=== PATIENT | female | born 1990 | race Caucasian/White ===

== ENCOUNTER 2023-11-28 20:33 | Outpatient (REF) | payer OTHER, SELFPAY | END 2023-11-28 20:34 | disposition home or self-care (01) | LOC: LAB 20:33 | PROVIDERS: PCP Family Medicine; Visit Provider Physician Assistant | DX: Z01.419 Encounter for gynecological examination (general) (routine) without abnormal findings (principal) | CPT/HCPCS: 87624; G0145 ==

== ENCOUNTER 2024-12-08 18:57 | Outpatient (REF) | payer OTHER, SELFPAY ==
--- OUTSIDE RECORDS SUMMARY | 2024-12-08 19:00 | XMS_ITS | CCD ---
Author Organization [facility] Care Team Providers Care Associate Director Regulatory Affairs Name Role Phone CHARLEE GODOY Primary Care Physician REQUEST, DR GAFFNEY LISTED Primary Care Unavaila ble KALA, DR GALICIA Admitting Unavailable KARASIK, DR BENNETT Consulting Unavailable KALA, DR GALICIA Attending Unavailable KALA, DR GALICIA Consulting Unavailable AGUBOSIM, RAJAN Consulting Unavailable KALA, DR GALICIA Procedure Practitioner Unavailab le NILL, DR MCFARLAND Admitting Unavailable NILL, DR MCFARLAND Consulting Unavailable GODOY, DR CHARLEE Fishman Primary Care Unavailable NILL, DR MCFARLAND Attending Unavailable KALA, DR GALICIA Admitting Unavailable REQUEST, DR YEIMY LISTED Primary Care Unavaila ble WEST, DR SHELDON Mccall Consulting Unavailable KALA, DR GALICIA Attending Unavailable KALA, DR GALICIA Consulting Unavailable KALA, DR GALICIA Admitting Unavailable KALA, DR GALICIA Consulting Unavailable REQUEST, DR GAFFNEY LISTED Primary Care Unavaila ble KALA, DR GALICIA Attending Unavailable KALA, DR GALICIA Admitting Unavailable REQUEST, DR GAFFNEY LISTED Primary Care Unavaila ble KALA, DR GALICIA Consulting Unavailable KALA, DR GALICIA Attending Unavailable KALA, DR GALICIA Admitting Unavailable REQUEST, DR GAFFNEY LISTED Primary Care Unavaila ble KALA, DR GALICIA Consulting Unavailable KALA, DR GALICIA Attending Unavailable KALA, DR GALICIA Admitting Unavailable KALA, DR GALICIA Consulting Unavailable KALA, DR GALICIA Attending Unavailable REQUEST, NONE LISTED Primary Care Unavaila ble ZIEBER, DR EFRAIN Martínez Consulting Unavailable KALA, DR GALICIA Consulting Unavailable REQUEST, DR GAFFNEY LISTED Primary Care Unavaila ble KALA, DR GALICIA Attending Unavailable KALA, DR GALICIA Admitting Unavailable KALA, DR GALICIA Consulting Unavailable REQUEST, DR NONE LISTED Primary Care Unavaila ble KALA, DR GALICIA Attending Unavailable KALA, DR GALICIA Admitting Unavailable KALA, DR GALICIA Consulting Unavailable REQUEST, NONE LISTED Primary Care Unavailcarmen ARMENDARIZ, DR GAILCIA Admitting Unavailable KALA, DR GALICIA Attending Unavailable GODOY PROVIDER, CHARLEE Referring Unavailab le NILL, Bartolo Martínez Attending Unavailable NILL, Bartolo Martínez Attending Unavailable NILL, Bartolo Martínez Attending Unavailable NILL, Bartolo Martínez Attending Unavailable GODOY PROVIDER, CHARLEE Referring Unavailab le NILL, Bartolo Martínez Attending Unavailable Godoy, Charlee Unavailable ARI NESBITT Attending Unavailable ARI NESBITT Attending Unavailable Unavailable Primary Care Provider Unavailabl e Allergies Allergy Classification Reported Allergen(s) Allergy Type Date of Onset Reaction(s) Facility (1 source) No Known Medication Allergies; Translations: [No Known Medication Allergies] Propensity to adverse reactions (disorder) [facility] Repository (1 source) patient allergy list reviewed by nurse or physicia Propensity to adverse reactions Comment:[employer] Other (1 source) Allergies Reconciled Propensity to adverse reactions Unknown [employer] [facility] [employer] Other Medications Current Medications Medication Drug Class(es) Dates Sig (Normalized) Sig (Original) amoxicillin 875 mg / clavulanate 125 mg oral tablet (1 source) Penicillin-class Antibacterial Start: 07-16-2023 take 1 tablet by mouth every twelve hours Amoxicillin-Pot Clavulanate 875-125 MG 1 tablet Orally every 12 hrs for 10 day(s) Jun, Active azithromycin 250 mg oral tablet (1 source) Macrolide Antimicrobial Start: 07-23-2023 Azithromycin 250 MG as directed Orally 2 tabs po today, then 1 tab daily x 4 more days for 5 Jul, Active benzonatate 100 mg oral capsule (1 source) Non-narcotic Antitussive Start: 07-16-2023 take 1 capsule by mouth three times daily as needed Tessalon Perles 100 MG 1 capsule as needed Orally Three times a day for 7 days Jun, Active cephalexin 250 mg oral capsule (1 source) Cephalosporin Antibacterial Start: 05-15-2022 End: 05-20-2022 take 1 capsule by mouth three times daily Keflex 250 mg Cap 250 mg = 1 cap(s), Oral, TID, X 5 day(s), # 15 cap(s), Refills(s) 0, Pharmacy: [facility]/pharmacy #[id number], 175, cm, 05/15/22 15:04:00 EDT, Height/Length Dosing, 81, kg, 05/15/22 15:04:00 EDT, Weight Dosing Start Date: 05/15/22 Stop Date: 05/20/22 Status: Ordered ethinyl estradiol 0.035 mg / norgestimate 0.25 mg oral tablet (2 sources) Progestin, Estrogen Start: 05-05-2024 take 1 tablet by mouth once daily, then take 1 tablet by mouth once daily Sprintec 28 0.25-35 MG-MCG tablet Indications: control counseling Take 1 tablet by mouth Daily Take 1 tablet by mouth daily 84 tablet 3 05/05/2024 Active Start: 11-23-2023 take 1 tablet by aliyah th once daily Norgestimate-Ethinyl Estradiol (Marian) 0.25-35 mg-mcg tablet Active 1 TAB PO Daily November 23, 2023 12:00am methylPREDNISolone 4 mg oral tablet (1 source) Corticosteroid Start: 07-16-2023 methylPREDNISolone 4 MG as directed Orally daily dose take half with breakfast half with dinner for Jun, Active norethindrone 0.35 mg oral tablet (3 sources) Start: 04-03-2022 take 1 tablet by mouth once daily norethindrone 0.35 mg oral tablet 0.35 mg = 1 tab(s), Oral, Daily, Refills(s) 0 Start Date: 04/20/22 Status: Ordered (1 source) Start: 04-10-2022 ( Oral 1 daily ) Active -Hx Entry Oral daily for 0 *Pick strength-form from [employer] for eRX* Mar, Not-Taking/PRN Completed/Discontinued Medications Medication Drug Class(es) Dates Sig (Normalized) Sig (Original) aspirin 81 mg oral tablet (1 source) Platelet Aggregation Inhibitor, Nonsteroidal Anti-inflammatory Drug Start: 12-05-2021 take 1 tablet by mouth once daily as needed Aspir-Low 81MG Aspir-Low 81MG, 1 (one) Tablet daily # 60, 12/05/2021, Ref. x2. Active Oral daily for 60 *Pick strength-form from [employer] for eRX* November, Not-Taking/PRN fluticasone propionate 0.05 mg/actuat metered dose nasal spray (1 source) Corticosteroid Start: 04-10-2019 take 1 spray(s) nasal route once daily as needed Flonase Allergy Relief 50 MCG/ACT 1 spray in each nostril Nasally Once a day for 30 day(s) Mar, Not-Taking/PRN Problems Active Problems Problem Classification Problem Date Documented Date Episodic/Chronic Chronic obstructive pulmonary disease and bronchiectasis (1 source) Bronchitis, not specified as acute or chronic Episodic Immunizations and screening for infectious disease (5 sources) Encounter for screening for human papillomavirus (HPV); Translations: [Encounter for screening for infections with a predominantly sexual mode of transmission] Onset: 07-10-2021 Resolved: 07-10-2021 Episodic Menstrual disorders (6 sources) Irregular menstruation, unspecified; Translations: [Secondary amenorrhea] Onset: 07-10-2021 Resolved: 12-28-2019 Chronic Other and unspecified benign neoplasm (2 sources) Lipoma of back 04-27-2022 Episodic Other and unspecified benign neoplasm (4 sources) Benign lipomatous neoplasm of skin and subcutaneous tissue of trunk; Translations: [SUSHMA LIPOMAT NEOPLSM SKIN SUBQ TRUNK] Onset: 06-06-2022 Episodic Other and unspecified benign neoplasm (1 source) Lipoma of skin and subcutaneous tissue of trunk; Translations: [Benign lipomatous neoplasm of skin and subcutaneous tissue of trunk] Episodic Other complications of (1 source) Disease of the digestive system complicating , childbirth and/or the puerperium; Translations: [Diseases of the digestive system complicating , unspecified trimester] Episodic Other complications of (1 source) Maternal care for excessive growth, unspecified trimester, not applicable or unspecified; Translations: [Maternal care for excessive growth, unspecified trimester, not applicable or unspecified] Episodic Other complications of (1 source) Varicose veins of vulva AND/OR perineum complicating AND/OR puerperium; Translations: [Genital varices in , unspecified trimester] Episodic Other diseases of veins and lymphatics (3 sources) Vulval varices; 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] 04-20-2022 Episodic Other female genital disorders (1 source) Noninflammatory disorder of the vagina; Translations: [Other specified noninflammatory disorders of vagina] Episodic Other female genital disorders (1 source) Cyst of vulva; Translations: [Vulvar cyst] Episodic Other nutritional; endocrine; and metabolic disorders (2 sources) Overweight in adulthood with body mass index of 25 or more but less than 30 04-27-2022 Episodic Other nutritional; endocrine; and metabolic disorders (1 source) Body mass index 25-29 - overweight; Translations: [Body mass index (BMI) 26.0-26.9, adult] Episodic Other and delivery including normal (14 sources) Single live ; Translations: [Encounter for supervision of normal , unspecified, unspecified trimester] Onset: 07-13-2021 Resolved: 11-23-2019 Episodic Other skin disorders (1 source) Epidermoid cyst of skin; Translations: [Sebaceous cyst] Episodic Other skin disorders (1 source) Swelling / lump finding; Translations: [Localized swelling, mass and lump, unspecified] Episodic Other upper respiratory infections (1 source) Acute upper respiratory infection; Translations: [Acute upper respiratory infection, unspecified] Episodic Residual codes; unclassified (1 source) Gestation period, 37 weeks; Translations: [37 weeks gestation of ] Episodic Residual codes; unclassified (1 source) Gestation period, 39 weeks; Translations: [39 weeks gestation of ] Episodic Residual codes; unclassified (1 source) Gestation period, 20 weeks; Translations: [20 weeks gestation of ] Episodic Residual codes; unclassified (1 source) Gestation period, 30 weeks; Translations: [30 weeks gestation of ] Episodic Residual codes; unclassified (1 source) Gestation period, 15 weeks; Translations: [15 weeks gestation of ] Episodic Residual codes; unclassified (1 source) Gestation period, 23 weeks; Translations: [23 weeks gestation of ] Episodic Residual codes; unclassified (1 source) Gestation period, 32 weeks; Translations: [32 weeks gestation of ] Episodic Residual codes; unclassified (1 source) Gestation period, 11 weeks; Translations: [11 weeks gestation of ] Episodic Residual codes; unclassified (1 source) Gestation period, 19 weeks; Translations: [19 weeks gestation of ] Episodic Residual codes; unclassified (1 source) Gestation period, 35 weeks; Translations: [35 weeks gestation of ] Episodic Residual codes; unclassified (1 source) Gestation period, 38 weeks; Translations: [38 weeks gestation of ] Episodic Residual codes; unclassified (1 source) Gestation period, 33 weeks; Translations: [33 weeks gestation of ] Episodic Unclassified (1 source) CONTACT W/AND (SUSP) EXPOS COVID-19; Translations: [CONTACT W/AND (SUSP) EXPOS COVID-19] Onset: 02-26-2022 Viral infection (1 source) Verruca vulgaris; Translations: [Viral wart, unspecified] Episodic Past or Other Problems Problem Classification Problem Date Documented Date Episodic/Chronic Diabetes mellitus without complication (1 source) Abnormal glucose level; Translations: [Other abnormal glucose] Resolved: 04-10-2018 Episodic Genitourinary symptoms and ill-defined conditions (1 source) Proteinuria; Translations: [Proteinuria, unspecified] Onset: 09-18-2018 Resolved: 01-25-2020 Episodic OB-related trauma to perineum and vulva (1 source) First degree perineal laceration during delivery; Translations: [FIRST DEG PERINEAL LAC DUR DELIV] Onset: 02-26-2022 Episodic Other complications of (3 sources) Maternal care for excessive growth, third trimester, not applicable or unspecified; Translations: [MAT CARE EXCSS FTL GRTH 3RD TRI UNS] Onset: 02-20-2022 Episodic Other complications of (1 source) Finding related to ; Translations: [Other specified related conditions, unspecified trimester] Resolved: 04-10-2018 Episodic Other female genital disorders (1 source) Dyspareunia; Translations: [Unspecified dyspareunia] Resolved: 11-23-2019 Chronic Other female genital disorders (1 source) Other specified noninflammatory disorders of vagina; Translations: [OTH SPEC NONINFLAMMATORY D/O VAGINA] Onset: 09-08-2021 Episodic Other female genital disorders (1 source) Other specified conditions associated with female genital organs and menstrual cycle; Translations: [Oth cond assoc w female genital organs and menstrual cycle] Resolved: 11-23-2019 Episodic Other screening for suspected conditions (not mental disorders or infectious disease) (17 sources) Encounter for screening for Streptococcus B; Translations: [Encounter for screening for diabetes mellitus] Onset: 08-10-2021 Episodic Other skin disorders (1 source) Sebaceous cyst; Translations: [Sebaceous cyst] Onset: 07-31-2018 Resolved: 01-25-2020 Episodic Residual codes; unclassified (1 source) 39 weeks gestation of ; Translations: [39 WEEKS GESTATION OF ] Onset: 02-26-2022 Episodic Residual codes; unclassified (1 source) Gestation period, 24 weeks; Translations: [24 weeks gestation of ] Resolved: 12-20-2021 Episodic Residual codes; unclassified (1 source) Gestation period, 14 weeks; Translations: [14 weeks gestation of ] Resolved: 04-10-2018 Episodic Residual codes; unclassified (1 source) Gestation period, 18 weeks; Translations: [18 weeks gestation of ] Resolved: 04-10-2018 Episodic Residual codes; unclassified (1 source) Gestation period, 36 weeks; Translations: [36 weeks gestation of ] Resolved: 05-16-2020 Episodic Residual codes; unclassified (1 source) Gestation period, 27 weeks; Translations: [27 weeks gestation of ] Resolved: 03-22-2020 Episodic Residual codes; unclassified (1 source) Gestation period, 31 weeks; Translations: [31 weeks gestation of ] Resolved: 04-10-2018 Episodic Skin and subcutaneous tissue infections (4 sources) Furuncle of left axilla; Translations: [Furuncle of left axilla] Onset: 03-26-2019 Resolved: 01-25-2020 Episodic Results Test Name Value Interpretation Reference Range Facility Influenza virus B Ag [Presen ce] in Upper respiratory specimen by Rapid immunoassayon 11-23-2023 FLUBV Ag IA.rapid Ql (Nph) Negative [facility] No Panel Informationon 11-22 Influenza Type A (Rapid) Negative [facility] POC SARS CoV-2 Antigen Negative [facility] No Panel InformationOrdered By: Lena Limon on 11-23-2023 Quick Strep (POC) [facility] General Surgery Office/Clini c Noteon 2022 General Surgery Office/Clinic Note Chief Complaint post op excisional biopsy lipoma, in-office excisional biopsy nevus HPI Staff 16 day post operative follow up post excisional biopsy right upper back lipoma. Denies pain, bleeding or drainage. In addition, will perform in-office excisional biopsy back nevus. History of Present Illness s/p excisional biopsy of lipoma of right upper back; doing well, pathology consistent with lipoma; patient also for excision of irregular nevus mid back. Review of Systems ROS - Provider Constitutional: no fever, no sweats, no weight loss. Eyes: no glasses, no blurred vision, no visual loss. ENMT: no dentures, no hoarseness, no swallowing difficulties, no hearing loss, no ear infection(s), no nose bleeds. Cardiovascular: normal blood pressure, no chest pain, regular heartbeat, no heart murmur. Respiratory: no shortness of breath, no cough, no asthma, no wheezing. Gastrointestinal: no nausea, no vomiting, no diarrhea, no constipation, no blood in stool, no change in bowel habits, no abdominal pain, no hepatitis. Genitourinary: no kidney stones, no urine infection, no dysuria. Musculoskeletal: no pain, no weakness. Skin: yes changing moles, no rash, no skin lumps. Neurologic: no seizures, no epilepsy, no headache. Psychiatric: no emotional or psychiatric problem. Heme/Lymph: no bleeding problems, no anemia, no blood clots, no transfusions. Allergy/Immunologic: no swollen lymph nodes/glands, no IV drug abuse. Other: Additional ROS info: Except as noted in the above Review of Systems and in the History of Present Illness, all other systems have been reviewed and are negative or noncontributory. Physical Exam skin: incision healing well, no erythema or drainage; mid back with 3 mm irregular nevus with irregular pigmentation, no ulceration. Assessment/Plan 1. Lipoma of back (D17.1: Benign lipomatous neoplasm of skin and subcutaneous tissue of trunk) healing well, call with problems/questions 2. Neoplasm of uncertain behavior of skin of back (D48.5: Neoplasm of uncertain behavior of skin) excised under local anesthesia, tolerated well, total length 4 mm; closed with interrupted 4-0 nylon sutures; tolerated well, ebl < 1 ml. Follow-up No qualifying data available Problem List/Past Medical History Ongoing BMI 26.0-26.9,adult Folliculitis of axilla Lipoma of back Neoplasm of uncertain behavior of skin of back Varicosities of vulva Historical No qualifying data Procedure/Surgical History Excision of cyst, Excision of lipoma of back, Extraction of wisdom tooth. Medications norethindrone 0.35 mg oral tablet, 0.35 mg= 1 tab(s), Oral, Daily Allergies No Known Allergies No Known Medication Allergies Social History Alcohol - Denies Alcohol Use, 04/27/2022 Substance Abuse - Denies Substance Abuse, 04/27/2022 Tobacco Never (less than 100 in lifetime) Tobacco Use:. Never Smokeless Tobacco Use:., 04/27/2022 Family History Family history is negative [facility] Comment on above: Result Comment: Elec tronically Signed By: GEETHA SIEGEL, Bartolo Martínez\.br\Date and Time Signed: 07/01/22 19:02 EST Pathology Noteon 06-29-2022 Pathology Note [id number] 1#1.00CD:127 [facility] Pathology Noteon 06-11-2022 Pathology Note [id number] #1.00CD:127 [facility] Operative Reporton 2 Operative Report [id number] #1.00CD:127 [facility] Pre-Certification Formon Pre-Certification Form [id number] 3#1.00CD:127 [facility] Ambulatory Visit Summaryon 1 Ambulatory Visit Summary TAMMIE MARES :1990 Visit Date:05/15/2022 Ambulatory Visit Instructions Your Care Team Attending Physician - GEETHA SIEGEL, Bartolo Martínez Primary Care Physician - CHARLEE GODOY MD This Is Your Medications List norethindrone (norethindrone 0.35 mg oral tablet) Procedures Performed Excision of cyst, Extraction of wisdom tooth. Discharge Vitals Heart Rate (Peripheral) 74 Respiratory Rate 16 Blood Pressure 120/74 Height 175 cm Height 69 in Weight 81 kg Weight 178.2 lb BMI 26.45 Medications What How Much When Instructions Unchanged norethindrone (norethindrone 0.35 mg oral tablet) 1 Tablets By Mouth Every day Allergies No Known Allergies No Known Medication Allergies Problems Ongoing - Any problem that you are currently receiving treatment for. BMI 26.0-26.9,adult Lipoma of back Varicosities of vulva Normal [facility] Consent for Procedure/Surger yon 05-03-2022 Consent for Procedure/Surgery [id number] #1.00CD:127 Normal [facility] Facesheeton 04-30-2022 Facesheet [id number] #1.00CD:127 Normal [facility] Physician Referralon 022 Physician Referral [id number] #1.00CD:127 Normal [facility] CBC AUTO DIFFon 02-21-2022 BASO # 0.1 103/ul Normal 0.0-0.1 [facility] Comment on above: Performed By: #### C BC #### [facility] [address] [place] [address] Dr. Jose Hou Basophils/100 WBC (Bld) 0.5 % Normal 0.2-2.0 [facility] Comment on above: Performed By: #### C BC #### [facility] [address] [place] [address] Dr. Jose Hou EO # 0.4 103/ul Normal 0.0-0.7 [facility] Comment on above: Performed By: #### C BC #### [facility] [address] [place] [address] Dr. Jose Hou Eosinophils/100 WBC (Bld) 3.9 % Normal 0.9-7.0 [facility] Comment on above: Performed By: #### C BC #### [facility] [address] [place] [address] Dr. Jose Hou Erythrocyte distribution width (RBC) [Ratio] 12.7 % Normal 11.0-15.0 [facility] Comment on above: Performed By: #### C BC #### [facility] [address] [place] [address] Dr. Jose Hou Hematocrit (Bld) [Volume fraction] 31.1 % Critically low 36.0-48.0 [facility] Comment on above: Performed By: #### C BC #### [facility] [address] [place] [address] Dr. Jose Hou Hemoglobin (Bld) [Mass/Vol] 10.1 g/dL Critically low 12.0-16.0 [facility] Comment on above: Performed By: #### C BC #### [facility] [address] [place] [address] Dr. Jose Hou IG # 0.07 10e3/ul Critically high 0.00-0.03 [facility] Comment on above: Performed By: #### C BC #### [facility] [address] [place] [address] Dr. Jose Hou IG % 0.8 % Critically high 0.0-0.5 [facility] Comment on above: Performed By: #### C BC #### [facility] [address] [place] [address] Dr. Jose Hou LYMPH # 1.6 103/ul Normal 1.2-3.8 [facility] Comment on above: Performed By: #### C BC #### [facility] [address] [place] [address] Dr. Jose Hou Lymphocytes/100 WBC (Bld) 17.7 % Critically low 20.5-60.0 [facility] Comment on above: Performed By: #### C BC #### [facility] [address] [place] [address] Dr. Jose Hou MANUAL DIFF REQ NO Normal [facility] Comment on above: Performed By: #### C BC #### [facility] [address] [place] [address] Dr. Jose Hou MCH (RBC) [Entitic mass] 30.3 pg Normal 26.7-34.0 [facility] Comment on above: Performed By: #### C BC #### [facility] [address] [place] [address] Dr. Jose Hou MCHC (RBC) [Mass/Vol] 32.5 g/dL Normal 29.9-35.2 [facility] Comment on above: Performed By: #### C BC #### [facility] [address] [place] [address] Dr. Jose Hou MCV (RBC) [Entitic vol] 93.4 fL Normal 81.0-99.0 [facility] Comment on above: Performed By: #### C BC #### [facility] [address] [place] [address] Dr. Jose Hou MONO # 0.7 103/ul Normal 0.3-0.8 [facility] Comment on above: Performed By: #### C BC #### [facility] [address] [place] [address] Dr. Jose Hou Monocytes/100 WBC (Bld) 7.0 % Normal 1.7-12.0 [facility] Comment on above: Performed By: #### C BC #### [facility] [address] [place] [address] Dr. Jose Hou NEUT # 6.5 103/ul Normal 1.4-6.5 [facility] Comment on above: Performed By: #### C BC #### [facility] [address] [place] [address] Dr. Jose Hou Neutrophils/100 WBC (Bld) 70.1 % Normal 43.0-75.0 [facility] Comment on above: Performed By: #### C BC #### [facility] [address] [place] [address] Dr. Jose Hou Platelet mean volume (Bld) [Entitic vol] 12.7 fL Normal 9.5-13.5 [facility] Comment on above: Performed By: #### C BC #### [facility] [address] [place] [address] Dr. Jose Hou PLT 161 103/ul Normal 150-450 [facility] Comment on above: Performed By: #### C BC #### [facility] [address] [place] [address] Dr. Jose Hou RBC 3.33 106/ul Critically low 4.20-5.40 [facility] Comment on above: Performed By: #### C BC #### [facility] [address] [place] [address] Dr. Jose Hou WBC 9.3 103/ul Normal 4.0-11.0 [facility] Comment on above: Performed By: #### C BC #### [facility] [address] [place] [address] Dr. Jose Hou CBC AUTO DIFFon 02-20-2022 BASO # 0.0 103/ul Normal 0.0-0.1 [facility] Comment on above: Performed By: #### C BC #### [facility] [address] [place] [address] Dr. Jose Hou Basophils/100 WBC (Bld) 0.4 % Normal 0.2-2.0 [facility] Comment on above: Performed By: #### C BC #### [facility] [address] [place] [address] Dr. Jose Hou EO # 0.3 103/ul Normal 0.0-0.7 [facility] Comment on above: Performed By: #### C BC #### [facility] [address] [place] [address] Dr. Jose Hou Eosinophils/100 WBC (Bld) 3.8 % Normal 0.9-7.0 [facility] Comment on above: Performed By: #### C BC #### [facility] [address] [place] [address] Dr. Jose Hou Erythrocyte distribution width (RBC) [Ratio] 12.7 % Normal 11.0-15.0 [facility] Comment on above: Performed By: #### C BC #### [facility] [address] [place] [address] Dr. Jose Hou Hematocrit (Bld) [Volume fraction] 30.9 % Critically low 36.0-48.0 [facility] Comment on above: Performed By: #### C BC #### [facility] [address] [place] [address] Dr. Jose Hou Hemoglobin (Bld) [Mass/Vol] 10.4 g/dL Critically low 12.0-16.0 [facility] Comment on above: Performed By: #### C BC #### [facility] [address] [place] [address] Dr. Jose Hou IG # 0.05 10e3/ul Critically high 0.00-0.03 [facility] Comment on above: Performed By: #### C BC #### [facility] [address] [place] [address] Dr. Jose Hou IG % 0.6 % Critically high 0.0-0.5 [facility] Comment on above: Performed By: #### C BC #### [facility] [address] [place] [address] Dr. Jose Hou LYMPH # 1.4 103/ul Normal 1.2-3.8 [facility] Comment on above: Performed By: #### C BC #### [facility] [address] [place] [address] Dr. Jose Hou Lymphocytes/100 WBC (Bld) 14.9 % Critically low 20.5-60.0 [facility] Comment on above: Performed By: #### C BC #### [facility] [address] [place] [address] Dr. Jose Hou MANUAL DIFF REQ NO Normal [facility] Comment on above: Performed By: #### C BC #### [facility] [address] [place] [address] Dr. Jose Hou MCH (RBC) [Entitic mass] 31.1 pg Normal 26.7-34.0 [facility] Comment on above: Performed By: #### C BC #### [facility] [address] [place] [address] Dr. Jose Hou MCHC (RBC) [Mass/Vol] 33.7 g/dL Normal 29.9-35.2 [facility] Comment on above: Performed By: #### C BC #### [facility] [address] [place] [address] Dr. Jose Hou MCV (RBC) [Entitic vol] 92.5 fL Normal 81.0-99.0 [facility] Comment on above: Performed By: #### C BC #### [facility] [address] [place] [address] Dr. Jose Hou MONO # 0.5 103/ul Normal 0.3-0.8 [facility] Comment on above: Performed By: #### C BC #### [facility] [address] [place] [address] Dr. Jose Hou Monocytes/100 WBC (Bld) 5.4 % Normal 1.7-12.0 [facility] Comment on above: Performed By: #### C BC #### [facility] [address] [place] [address] Dr. Jose Hou NEUT # 6.8 103/ul Critically high 1.4-6.5 [facility] Comment on above: Performed By: #### C BC #### [facility] [address] [place] [address] Dr. Jose Hou Neutrophils/100 WBC (Bld) 74.9 % Normal 43.0-75.0 [facility] Comment on above: Performed By: #### C BC #### [facility] [address] [place] [address] Dr. Jose Hou Platelet mean volume (Bld) [Entitic vol] 12.8 fL Normal 9.5-13.5 [facility] Comment on above: Performed By: #### C BC #### [facility] [address] [place] [address] Dr. Jose Hou PLT 199 103/ul Normal 150-450 [facility] Comment on above: Performed By: #### C BC #### [facility] [address] [place], [place] [id number] Dr. Jose Hou RBC 3.34 106/ul Critically low 4.20-5.40 [facility] Comment on above: Performed By: #### C BC #### [facility] [address] [place] [address] Dr. Jose Hou WBC 9.0 103/ul Normal 4.0-11.0 [facility] Comment on above: Performed By: #### C BC #### [facility] [address] [place] [address] Dr. Jose Hou Covid-19 PCR ([facility])on SARS-CoV-2 (COVID-19) RNA ABRAN+probe Ql (Unsp spec) Not detected Normal NOT DETECTED [facility] Comment on above: Result Comment: When diagnostic testing is negative, the possibility of a false negative should be considered in the context of a patient's recent exposures and the presence of clinical signs and symptoms consistent with SARS-CoV-2. This test is not yet approved or cleared by the [place] FDA. When there are no FDA-approved or cleared tests available, and other criteria are met, FDA can make tests available under an emergency access mechanism called an Emergency Use Authorization (EUA). The EUA for this test is supported by the [employer] Tender of Health and Human Service's declaration that circumstances exist to justify the emergency use of in vitro diagnostics for the detection and/or diagnosis of the virus that causes COVID-19. This EUA will remain in effect for the duration of the COVID-19 declaration justifying emergency of IVDs, unless it is terminated or revoked by the FDA (after which the test may no longer be used). Performed By: #### V AGINT #### [facility] [address] [place] [address] Dr. Jose Hou DRUG SCREEN RAPID (URINE)on 02-20-2022 AMP Negative Normal NEGATIVE [facility] Comment on above: Performed By: #### D RUGRPD #### [facility] [address] [place] [address] Dr. Jose Hou BAR Negative Normal NEGATIVE [facility] Comment on above: Performed By: #### D RUGRPD #### [facility] [address] [place] [address] Dr. Jose Hou BUP Negative Normal NEGATIVE [facility] Comment on above: Performed By: #### D RUGRPD #### [facility] [address] [place] [address] Dr. Jose Hou BZO Negative Normal NEGATIVE [facility] Comment on above: Performed By: #### D RUGRPD #### [facility] [address] [place] [address] Dr. Jose Hou GOMEZ Negative Normal NEGATIVE [facility] Comment on above: Performed By: #### D RUGRPD #### [facility] [address] [place] [address] Dr. Jose Hou CUT-OFFS SEE BELOW Normal [facility] Comment on above: Result Comment: AMP (Amphetamine): 500ng/mL, BAR (Barbituates): 200 ng/mL, BZO (Benzodiazepines): 150 ng/mL, BUP (Buprenorphine): 10 ng/mL, GOMEZ (Cocaine): 150 ng/mL, mAMP (Methamphetamine): 500 ng/mL, MTD (Methadone): 200 ng/mL, OPI (Opiates): 100 ng/mL, OXY (Oxycodone): 100 ng/mL, PCP (Phencyclidine): 25 ng/mL, PPX (Propoxyphene): 300 ng/mL, THC (Cannabinoids): 50 ng/mL, TCA (Trycyclic Antidepressants): 300 ng/mL Performed By: #### D RUGRPD #### [facility] [address] [place] [address] Dr. Jose Hou DRUG CUT HEADER DRUG CLASS TEST SYSTEM CUT-OFF CONCENTRATIONS ARE FOLLOWS: Normal [facility] Comment on above: Performed By: #### D RUGRPD #### [facility] [address] [place] [address] Dr. Jose Hou mAMP Negative Normal NEGATIVE [facility] Comment on above: Performed By: #### D RUGRPD #### [facility] [address] [place] [address] Dr. Jose Hou MTD Negative Normal NEGATIVE [facility] Comment on above: Performed By: #### D RUGRPD #### [facility] [address] [place] [address] Dr. Jose Hou OPI Negative Normal NEGATIVE [facility] Comment on above: Performed By: #### D RUGRPD #### [facility] [address] [place] [address] Dr. Jose Hou OXY Negative Normal NEGATIVE [facility] Comment on above: Performed By: #### D RUGRPD #### [facility] [address] [place] [address] Dr. Jose Hou PCP Negative Normal NEGATIVE [facility] Comment on above: Performed By: #### D RUGRPD #### [facility] [address] [place] [address] Dr. Jose Hou PPX Negative Normal NEGATIVE [facility] Comment on above: Performed By: #### D RUGRPD #### [facility] [address] [place] [address] Dr. Jose Hou TCA Negative Normal NEGATIVE [facility] Comment on above: Performed By: #### D RUGRPD #### [facility] [address] [place] [address] Dr. Jose Hou THC Negative Normal NEGATIVE [facility] Comment on above: Performed By: #### D RUGRPD #### [facility] [address] [place] [address] Dr. Jose Hou TYPE AND SCREENon 02-20-2022 TYPE AND SCREEN Negative Normal [facility] Comment on above: Performed By: #### T NS #### [facility] [address] [place] [address] Dr. Jose Hou GROUP B STREP CULTUREon 01-19 S. agalactiae Ag Ql (Unsp spec) Culture Observations: NEGATIVE FOR GROUP B STREPTOCOCCUS. Normal [facility] Comment on above: Performed By: #### V AGINT #### [facility] [address] [place] [address] Dr. Jose Hou CBC AUTO DIFFon 12-27-2021 BASO # 0.0 103/ul Normal 0.0-0.1 [facility] Comment on above: Performed By: #### C T/NGNA #### [facility] [address] [place] [address] Dr. Jose Hou Basophils/100 WBC (Bld) 0.4 % Normal 0.2-2.0 [facility] Comment on above: Performed By: #### C T/NGNA #### [facility] [address] [address] [address] Jose Hou EO # 0.1 103/ul Normal 0.0-0.7 [facility] Comment on above: Performed By: #### C T/NGNA #### [facility] [address] [place] [address] Dr. Jose Hou Eosinophils/100 WBC (Bld) 1.2 % Normal 0.9-7.0 [facility] Comment on above: Performed By: #### C T/NGNA #### [facility] [address] [place] [address] Dr. Jose Hou Erythrocyte distribution width (RBC) [Ratio] 12.4 % Normal 11.0-15.0 [facility] Comment on above: Performed By: #### C T/NGNA #### [facility] [address] [place] [address] Dr. Jose Hou Hematocrit (Bld) [Volume fraction] 33.7 % Critically low 36.0-48.0 [facility] Comment on above: Performed By: #### C T/NGNA #### [facility] [address] [place] [address] Dr. Jose Hou Hemoglobin (Bld) [Mass/Vol] 11.3 g/dL Critically low 12.0-16.0 [facility] Comment on above: Performed By: #### C T/NGNA #### [facility] [address] [place] [address] Dr. Jose Hou IG # 0.08 10e3/ul Critically high 0.00-0.03 [facility] Comment on above: Performed By: #### C T/NGNA #### [facility] [address] [place] [address] Dr. Jose Hou IG % 0.7 % Critically high 0.0-0.5 [facility] Comment on above: Performed By: #### C T/NGNA #### [facility] [address] [place] [address] Dr. Jose Hou LYMPH # 1.6 103/ul Normal 1.2-3.8 [facility] Comment on above: Performed By: #### C T/NGNA #### [facility] [address] [place] [address] Dr. Jose Hou Lymphocytes/100 WBC (Bld) 14.3 % Critically low 20.5-60.0 [facility] Comment on above: Performed By: #### C T/NGNA #### [facility] [address] [place] [address] Dr. Jose Hou MANUAL DIFF REQ NO Normal [facility] Comment on above: Performed By: #### C T/NGNA #### [facility] [address] [place] [address] Dr. Jose Hou MCH (RBC) [Entitic mass] 31.9 pg Normal 26.7-34.0 [facility] Comment on above: Performed By: #### C T/NGNA #### [facility] [address] [place] [address] Dr. Jose Hou MCHC (RBC) [Mass/Vol] 33.5 g/dL Normal 29.9-35.2 [facility] Comment on above: Performed By: #### C T/NGNA #### [facility] [address] [place] [address] Dr. Jose Hou MCV (RBC) [Entitic vol] 95.2 fL Normal 81.0-99.0 [facility] Comment on above: Performed By: #### C T/NGNA #### [facility] [address] [place] [address] Dr. Jose Hou MONO # 0.6 103/ul Normal 0.3-0.8 [facility] Comment on above: Performed By: #### C T/NGNA #### [facility] [address] [place] [address] Dr. Jose Hou Monocytes/100 WBC (Bld) 5.3 % Normal 1.7-12.0 [facility] Comment on above: Performed By: #### C T/NGNA #### [facility] [address] [place] [address] Dr. Jose Hou NEUT # 8.8 103/ul Critically high 1.4-6.5 [facility] Comment on above: Performed By: #### C T/NGNA #### [facility] [address] [place] [address] Dr. Jose Hou Neutrophils/100 WBC (Bld) 78.1 % Critically high 43.0-75.0 [facility] Comment on above: Performed By: #### C T/NGNA #### [facility] [address] [place] [address] Dr. Jose Hou Platelet mean volume (Bld) [Entitic vol] 12.2 fL Normal 9.5-13.5 [facility] Comment on above: Performed By: #### C T/NGNA #### [facility] [address] [place] [address] Dr. Jose Hou PLT 224 103/ul Normal 150-450 [facility] Comment on above: Performed By: #### C T/NGNA #### [facility] [address] [place] [address] Dr. Jose Hou RBC 3.54 106/ul Critically low 4.20-5.40 [facility] Comment on above: Performed By: #### C T/NGNA #### [facility] [address] [place] [address] Dr. Jose Hou WBC 11.2 103/ul Critically high 4.0-11.0 [facility] Comment on above: Performed By: #### C T/NGNA #### [facility] [address] [place] [address] Dr. Jose Hou GLUCOSE - 1HRon 11-21-2021 Glucose [Mass/Vol] 118 mg/dL Critically high 74-106 [facility] Comment on above: Performed By: #### G LU1HR #### [facility] [address] [place] [address] Dr. Jose Hou HEMOGRAM AND PLATELon 2021 Hematocrit (Bld) [Volume fraction] 37.8 % Normal 36.0-48.0 [facility] Comment on above: Performed By: #### V AGINT #### [facility] [address] [place] [address] Dr. Jose Hou Hemoglobin (Bld) [Mass/Vol] 12.5 g/dL Normal 12.0-16.0 [facility] Comment on above: Performed By: #### V AGINT #### [facility] [address] [place] [address] Dr. Jose Hou MCH (RBC) [Entitic mass] 31.6 pg Normal 26.7-34.0 [facility] Comment on above: Performed By: #### V AGINT #### [facility] [address] [place] [address] Dr. Jose Hou MCHC (RBC) [Mass/Vol] 33.1 g/dL Normal 29.9-35.2 [facility] Comment on above: Performed By: #### V AGINT #### [facility] [address] [place] [address] Dr. Jose Hou MCV (RBC) [Entitic vol] 95.5 fL Normal 81.0-99.0 [facility] Comment on above: Performed By: #### V AGINT #### [facility] [address] [place] [address] Dr. Jose Hou PLT 253 103/ul Normal 150-450 [facility] Comment on above: Performed By: #### V AGINT #### [facility] [address] [place] [address] Dr. Jose Hou RBC 3.96 106/ul Critically low 4.20-5.40 [facility] Comment on above: Performed By: #### V AGINT #### [facility] [address] [place] [address] Dr. Jose Hou WBC 11.0 103/ul Normal 4.0-11.0 [facility] Comment on above: Performed By: #### V AGINT #### [facility] [address] [place] [address] Dr. Jose Hou US PREG ANATOMY SINGLEon US PREG ANATOMY SINGLE EXAMINATION: US P REG ANATOMY SINGLE HISTORY: screening COMPARISON: No relevant comparison available. TECHNIQUE: Transabdominal sonographic examination was performed for obstetrical and evaluation. FINDINGS: Number: 1 Heart Rate: 135.7 bpm H.B. /min Amniotic Fluid Volume: Subjectively normal position: Transverse presentation and lie Placental Location: Anterior, grade 0. Placental edge 4.8 cm from the cervical os. Area of anechoic echogenicity measuring 2.5 x 1.8 x 1.7 cm likely a venous case Cervix Length: 4.8 cm, closed Normal structures: Cerebellum. Choroid plexus. Cisterna magna. Lateral cerebral ventricles. Orbits. Midline falx. Hard palate. 4-chamber heart. RVOT. LVOT. Stomach. Kidneys. Bladder. Umbilical cord insertion into abdomen. 3 vessel cord. Cervical spine. Thoracic spine. Lumbar spine. Sacral spine. Right upper extremity. Left upper extremity. Right lower extremity. Left lower extremity. Suboptimally seen: None. 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 Electronically authenticated by: SHELDON HUDSON Date: 2021-10-10 09:15 Normal [facility] PAP ACOG PANEL 2: 30 to 65on 09-12-2021 . . Normal [facility] Comment on above: Result Comment: Perf ormed at: WB Performed By: #### V AGINT #### [facility] [address] [address] [address] Jose Hou Age Gdln ACOG Testing 30-65 Normal [facility] Comment on above: Performed By: #### V AGINT #### [facility] [address] [address] [address] Jose Hou DIAGNOSIS: Comment Normal [facility] Comment on above: Result Comment: NEGA TIVE FOR INTRAEPITHELIAL LESION OR MALIGNANCY. Performed at: WB Performed By: #### V AGINT #### [facility] [address] [address] [address] Jose Hou HPV Aptima Negative Normal Negative [facility] Comment on above: Result Comment: This nucleic acid amplification test detects fourteen high-risk HPV types (16,18,31,33,35,39,45,51,52,56,58,59,66,68) without differentiation. Performed at: =G Performed By: #### V AGINT #### [facility] [address] [place] [address] Dr. Jose Hou Methodology: Comment Normal [facility] Comment on above: Result Comment: This liquid based ThinPrep(R) pap test was screened with the use of an image guided system. Performed at: WB Performed By: #### V AGINT #### [facility] [address] [place] [address] Dr. Jose Hou Note: Comment Normal [facility] Comment on above: Result Comment: The Pap smear is a screening test designed to aid in the detection of premalignant and malignant conditions of the uterine cervix. It is not a diagnostic procedure and should not be used as the sole means of detecting cervical cancer. Both false-positive and false-negative reports do occur. . Performed at: WB Performed By: #### V AGINT #### [facility] [address] [place] [address] Dr. Jose Hou Performed by: Comment Normal [facility] Comment on above: Result Comment: Dafne Hudson, Neurology Hospitalist (ASCP) Performed at: WB Performed By: #### V AGINT #### [facility] [address] [place] [address] Dr. Jose Hou Specimen adequacy: Comment Normal [facility] Comment on above: Result Comment: Sati sfactory for evaluation. No endocervical component is identified. Performed at: WB Performed By: #### V AGINT #### [facility] [address] [place] [address] Dr. Jose Hou CHLAMYDIA/GONOCOCCUS ABRAN (SW AB/URINE/PAPon 09-09-2021 Chlamydia trachomatis, ABRAN Negative Normal Negative [facility] Comment on above: Performed By: #### C T/NGNA #### [facility] [address] [place] [address] Dr. Jose Hou Neisseria gonorrhoeae, ABRAN Negative Normal Negative [facility] Comment on above: Performed By: #### C T/NGNA #### [facility] [address] [place] [address] Dr. Jose Hou VAGINITIS/VAGINOSIS DNA PROB Sammy 09-08-2021 Alicia species Negative Normal Negative [facility] Comment on above: Performed By: #### V AGINT #### [facility] [address] [place] [address] Dr. Jose Hou Gardnerella vaginalis Negative Normal Negative [facility] Comment on above: Performed By: #### V AGINT #### [facility] [address] [place] [address] Dr. Jose Hou Trichomonas vaginalis Negative Normal Negative [facility] Comment on above: Performed By: #### V AGINT #### [facility] [address] [place] [address] Dr. Jose Hou HEP B SURFACE ANTIGEN SCREEN on 08-09-2021 HBsAg Screen Negative Normal Negative [facility] Comment on above: Performed By: #### V AGINT #### [facility] [address] [place] [address] Dr. Jose Hou HEPATITIS C VIRUS AB W/ REFL EX QUANTon 08-09-2021 HCV AB 0.1 s/co ratio Normal 0.0-0.9 [facility] Comment on above: Performed By: #### V AGINT #### [facility] [address] [place] [address] Dr. Jose Hou Interpretation: Comment Normal [facility] Comment on above: Result Comment: Nega tive Not infected with HCV, unless recent infection is suspected or other evidence exists to indicate HCV infection. Performed By: #### V AGINT #### [facility] [address] [place] [address] Dr. Jose Hou HIV 1 AND 2 WITH REFLEXon HIV Screen 4th Generation wRfx Non-Reactive Normal Non Reactive [facility] Comment on above: Result Comment: HIV Negative HIV-1/HIV-2 antibodies and HIV-1 p24 antigen were NOT detected. There is no laboratory evidence of HIV infection. Performed By: #### V AGINT #### [facility] [address] [place] [address] Dr. Jose Hou RPR QUANTon 08-09-2021 Rapid Plasma Reagin, Quant Non-Reactive Normal NonRea<1:1 [facility] Comment on above: Performed By: #### C T/NGNA #### [facility] [address] [place] [address] Dr. Jose Hou RUBELLA AB IGGon 08-09-2021 Rubella Antibodies, IgG 3.89 index Normal Immune >0.99 [facility] Comment on above: Result Comment: Non- immune <0.90 Equivocal 0.90 - 0.99 Immune >0.99 Performed By: #### C T/NGNA #### [facility] [address] [place] [address] Dr. Jose Hou CBC AUTO DIFFon 08-08-2021 BASO # 0.1 103/ul Normal 0.0-0.1 [facility] Comment on above: Performed By: #### C T/NGNA #### [facility] [address] [place] [address] Dr. Jose Hou Basophils/100 WBC (Bld) 0.5 % Normal 0.2-2.0 [facility] Comment on above: Performed By: #### C T/NGNA #### [facility] [address] [place] [address] Dr. Jose Hou EO # 0.3 103/ul Normal 0.0-0.7 [facility] Comment on above: Performed By: #### C T/NGNA #### [facility] [address] [place] [address] Dr. Jose Hou Eosinophils/100 WBC (Bld) 2.6 % Normal 0.9-7.0 [facility] Comment on above: Performed By: #### C T/NGNA #### [facility] [address] [place] [address] Dr. Jose Hou Erythrocyte distribution width (RBC) [Ratio] 12.1 % Normal 11.0-15.0 [facility] Comment on above: Performed By: #### C T/NGNA #### [facility] [address] [place] [address] Dr. Jose Hou Hematocrit (Bld) [Volume fraction] 39.1 % Normal 36.0-48.0 [facility] Comment on above: Performed By: #### C T/NGNA #### [facility] [address] [place] [address] Dr. Jose Hou Hemoglobin (Bld) [Mass/Vol] 13.2 g/dL Normal 12.0-16.0 [facility] Comment on above: Performed By: #### C T/NGNA #### [facility] [address] [place] [address] Dr. Jose Hou IG # 0.05 10e3/ul Critically high 0.00-0.03 [facility] Comment on above: Performed By: #### C T/NGNA #### [facility] [address] [place] [address] Dr. Jose Hou IG % 0.4 % Normal 0.0-0.5 [facility] Comment on above: Performed By: #### C T/NGNA #### [facility] [address] [place] [address] Dr. Jose Hou LYMPH # 2.3 103/ul Normal 1.2-3.8 [facility] Comment on above: Performed By: #### C T/NGNA #### [facility] [address] [place] [address] Dr. Jose Hou Lymphocytes/100 WBC (Bld) 18.1 % Critically low 20.5-60.0 [facility] Comment on above: Performed By: #### C T/NGNA #### [facility] [address] [place] [address] Dr. Jose Hou MANUAL DIFF REQ NO Normal [facility] Comment on above: Performed By: #### C T/NGNA #### [facility] [address] [place] [address] Dr. Jose Hou MCH (RBC) [Entitic mass] 31.7 pg Normal 26.7-34.0 [facility] Comment on above: Performed By: #### C T/NGNA #### [facility] [address] [place] [address] Dr. Jose Hou MCHC (RBC) [Mass/Vol] 33.8 g/dL Normal 29.9-35.2 [facility] Comment on above: Performed By: #### C T/NGNA #### [facility] [address] [place] [address] Dr. Jose Hou MCV (RBC) [Entitic vol] 93.8 fL Normal 81.0-99.0 [facility] Comment on above: Performed By: #### C T/NGNA #### [facility] [address] [place] [address] Dr. Jose Hou MONO # 0.5 103/ul Normal 0.3-0.8 [facility] Comment on above: Performed By: #### C T/NGNA #### [facility] [address] [place] [address] Dr. Jose Hou Monocytes/100 WBC (Bld) 4.2 % Normal 1.7-12.0 [facility] Comment on above: Performed By: #### C T/NGNA #### [facility] [address] [place] [address] Dr. Jose Hou NEUT # 9.3 103/ul Critically high 1.4-6.5 [facility] Comment on above: Performed By: #### C T/NGNA #### [facility] [address] [place] [address] Dr. Jose Hou Neutrophils/100 WBC (Bld) 74.2 % Normal 43.0-75.0 [facility] Comment on above: Performed By: #### C T/NGNA #### [facility] [address] [address] [address] Jose Hou Platelet mean volume (Bld) [Entitic vol] 11.4 fL Normal 9.5-13.5 [facility] Comment on above: Performed By: #### C T/NGNA #### [facility] [address] [address] [address] Jose Hou PLT 280 103/ul Normal 150-450 [facility] Comment on above: Performed By: #### C T/NGNA #### [facility] [address] [address] [address] Jose Hou RBC 4.17 106/ul Critically low 4.20-5.40 [facility] Comment on above: Performed By: #### C T/NGNA #### [facility] [address] [address] [address] Jose Hou WBC 12.5 103/ul Critically high 4.0-11.0 [facility] Comment on above: Performed By: #### C T/NGNA #### [facility] [address] [address] [address] Jose Hou GLYCOHEMOGLOBIN A1Con 2021 ADA RECOMMENDATION ADA THERAPEUTIC TARGET 6.0 - 7.0 ACTION SUGGESTED > 7.0 Normal [facility] Comment on above: Performed By: #### A 1C #### [facility] [address] [address] [address] Jose Hou Glucose [Mass/Vol] 97 mg/dL Normal [facility] Comment on above: Performed By: #### A 1C #### [facility] [address] [address] [address] Jose Hou HbA1c (Bld) [Mass fraction] 5.0 % Normal <=6.0 [facility] Comment on above: Performed By: #### A 1C #### [facility] [address] [address] [address] Jose Hou TYPE AND SCREENon 08-08-2021 TYPE AND SCREEN Negative Normal [facility] Comment on above: Performed By: #### V AGINT #### [facility] [address] [place], [place] [address] Dr. Jose Hou CULTURE URINEon 07-10-2021 CULTURE URINE Culture Observations: LIGHT GROWTH OF MIXED GENITAL DENA. NO POTENTIAL PATHOGENS SEEN. Normal [facility] Comment on above: Performed By: #### U RCX #### [facility] [id number] Jose Hou US PREG TVon 07-08-2021 US PREG TV EXAMINATION: US PREG TV HISTORY: test positive COMPARISON: No relevant comparison available. FINDINGS: GESTATIONAL SAC: Present and normal appearing. POLE: Present and normal appearing. YOLK SAC: Present. CARDIAC: Present. UTERUS: Normal size and appearance. OVARIES: Right: Normal. Left: Corpus lutein cyst. CERVIX: 4.2 cm in length and closed. CUL-DE-SAC: Trace amount of free fluid; likely physiologic. OTHER: None. AGE BY LMP: 7 weeks, 1 day ANABELLE BY LMP: 02/23/2022 AGE BY US CRL: 7 weeks, 2 days ANABELLE BY US CRL: 02/22/2022 IMPRESSION: 1. Single live intrauterine 7 weeks, 1 day. Electronically authenticated by: EFRAIN GABRIEL Date: 2021-07-08 08:03 Normal [facility] Vital Signs Date Time Vital Sign Value Performing Clinician Facility 11-23-2023 10:06-0400 Body height 175.26 cm [facility] 11-23-2023 10:06-0400 Body mass index (BMI) [Ratio] 25.8 kg/m2 [facility] 11-23-2023 10:06-0400 Body temperature 97.8 [degF] [facility] 11-23-2023 10:06-0400 Body weight 79.37 kg [facility] 11-23-2023 10:06-0400 Heart rate 86 /min [facility] 11-23-2023 10:06-0400 Respiratory rate 16 /min [facility] 11-23-2023 10:06-0400 SaO2% (BldA) [Mass fraction] 97 % [facility] 07-23-2023 09:15-0500 Body height 175.26 cm Charlee Godoy Other [facility] Other 07-23-2023 09:15-0500 Body mass index (BMI) [Ratio] 25.75 kg/m2 Charlee Godoy Other [facility] Other 07-23-2023 09:15-0500 Body temperature 97.7 [degF] Charlee Godoy Other [facility] Other 07-23-2023 09:15-0500 Body weight 79.11 kg Charlee Godoy Other [facility] Other 07-23-2023 09:15-0500 Diastolic blood pressure 86 mm[Hg] Charlee Godoy Other [facility] Other 07-23-2023 09:15-0500 Systolic blood pressure 124 mm[Hg] Charlee Godoy Other [facility] Other 05-15-2022 15:03-0400 Blood Pressure Location Bartolo ELIZONDOL [facility] [place] 05-15-2022 15:03-0400 Diastolic blood pressure 74 mm[Hg] Bartolo ELIZONDOL [facility] [place] 05-15-2022 15:03-0400 Heart rate 74 /min Abrtolo NILL [facility] [place] 05-15-2022 15:03-0400 Respiratory rate 16 /min Bartolo ELIZONDOL [facility] [place] 05-15-2022 15:03-0400 Systolic blood pressure 120 mm[Hg] Bartolo ELIZONDOL [facility] [place] Encounters Encounter Date Encounter Type Care Provider Facility Start: 12-08-2024 End: 12-08-2024 Bamboo flowsheet Frida Kala DO Work Phone: [facility] Start: 12-08-2024 End: 12-08-2024 Bamboo flowsheet Frida Kala DO Work Phone: [facility] Start: 11-28-2023 End: 11-28-2023 ambulatory ARI NESBITT Not Available Start: 11-28-2023 End: 11-28-2023 ambulatory ARI NESBITT Not Available Start: 11-23-2023 End: 11-23-2023 ambulatory [facility] Work Phone: Start: 11-23-2023 End: 11-23-2023 Patient encounter procedure [facility] Phys[facility] Work Phone: Start: 07-23-2023 End: 07-23-2023 ambulatory Charlee Godoy Other [facility] Other Start: 07-23-2023 Office outpatient vi sit [address] [facility] Start: 06-22-2022 End: 06-23-2022 ambulatory Bartolo TINAJERO Facility: [place] Start: 06-22-2022 End: 06-22-2022 Patient encounter procedure Bartolo TINAJERO [facility] [place] Start: 06-06-2022 End: 06-07-[address] BARTOLO TINAJERO Facility: Start: 05-15-2022 End: 05-16-2022 ambulatory Bartolo TINAJERO Facility:[facility] Start: 05-15-2022 End: 05-15-2022 Patient encounter procedure Bartolo TIANJERO [facility] [place] Start: 04-27-2022 End: 04-28-2022 ambulatory CHARLEE GODOY PROVIDER Facility:[facility] Start: 04-10-2022 Gynecological examin ation normal Charlee Gdooy Other [facility] Other Start: 04-10-2022 ambulatory CHARLEE GODOY PROVIDER Facility:[facility] Start: 02-20-2022 End: 02-21-2022 Evaluation and management of inpatient NONE LISTED REQUEST Facility:[facility] Start: 01-30-2022 End: 01-30-[address] FRIDA ARMENDARIZ Facility:[facility] Start: 12-27-2021 End: 12-28-[address] FRIDA ARMENDARIZ Facility:[facility] Start: 11-21-2021 End: 11-22-[address] FRIDA ARMENDARIZ Facility:[facility] Start: 10-10-2021 End: 10-11-[address] FRIDA ARMENDARIZ Facility:[facility] Start: 09-07-2021 End: 09-07-[address] FRIDA ARMENDARIZ Facility:[facility] Start: 08-08-2021 End: 08-09-[address] FRIDA ARMENDARIZ Facility:[facility] Start: 07-10-2021 End: 07-10-[address] FRIDA ARMENDARIZ Facility:[facility] Start: 07-08-2021 End: 07-09-[address] FRIDA ARMENDARIZ Facility:[facility] Procedures Date Procedure Procedure Detail Performing Clinician Start: 11-23-2023 Quick Strep (POC) Start: 02-20-2022 Delivery of Products of Conception, External Approach NONE LISTED REQUEST Start: 02-20-2022 Drainage of Amniotic Fluid, Therapeutic from Products of Conception, Via Natural or Artificial Opening DR NONE LISTED REQUEST Start: 02-20-2022 Introduction of Othe r Hormone into Peripheral Vein, Percutaneous Approach NONE LISTED REQUEST Start: 02-20-2022 Repair Perineum Skin , External Approach NONE LISTED REQUEST screening Charlee butler Other screening Charlee butler Other Contraception care education Charlee Godoy Other End: 12-20-2021 Diabetes mellitus screening Charlee Godoy Other Excision of cyst Bartolo NIL Waldo Comment on above: right groin Excision of lipoma of back Navarro tierra TINAJERO Extraction of wisdom tooth M tierra GEETHA visit Charlee Godoy Other Plan of Treatment Date Care Activity Detail Author Start: 12-08-2024 End: 12-08-2024 Patient encounter procedure 12/08/2024 11:30 AM EDT Office Visit [facility] [address] [place] [address] Frida Armendariz DO [address] [facility], [id number] Arrived [facility] Comment on above: Arrived Payers Date Payer Category Payer Managed Care HMO (unspecified) [employer] [id number] 1991 Unknown [id number]. 2.593 1991 Unknown [id number] 2.840.1.805766.3.579. 2.593 1991 Unknown [id number] 2.840.1.551237.3.579. 2.593 1991 Unknown [id number] 2.840.1.238205.3.579. 2.593 1991 Unknown [id number] 2.16840.1.826134.3.579. 2.593 1991 Unknown [id number] 2.16840.1.311927.3.579. 2.593 1991 Unknown [id number] 2.16.840.1.170364.3.579. 2.593 1991 Unknown [id number] 2.16.840.1.591968.3.579. 2.593 1991 Unknown [id number] 2.16.840.1.367132.3.579. 2.593 1991 Unknown [id number] 2.16.840.1.911232.3.579. 2.593 1991 Unknown [id number] 2.16.840.1.350141.3.579. 2.727 1991 Unknown [id number] 2.16.840.1.659207.3.579. 2.727 1991 Unknown [id number] 2.16.840.1.407382.3.579. 2.727 1991 Unknown [id number] 2.16.840.1.941754.3.579. 2.727 1991 Unknown [id number] 2.16.840.1.647112.3.579. 2.727 1991 Unknown [id number] 2.16.840.1.471697.3.579. 2.1259 1959 Private Health Insurance [id number] Private Health Insurance [id number] Unknown O [id number] Unknown HCAP/HFA/FAP Active [id number] Social History Date Type Detail Facility Start: 04-27-2022 End: 11-23-2023 Tobacco smoking status Never smoked tobacco (finding) [facility] Tobacco smoking status Never [facility] Sex Assigned At Female [facility] Start: 1990 Sex Assigned At Female [facility] Tobacco smoking status SDIS Tobacco smoking consumption unknown [facility] Start: 1990 Sex assigned at Not on file [facility] Functional Status Date Assessment Result Facility 05-15-2022 Functional Status N/A [facility] Evaluation note 07-23-2023 Note Date & Type Note Facility 07-23-2023 Evaluation note Encounter Date Diagnosis Assessment Notes Jul, Bronchitis (ICD-10 - J40) stop augmentin switch to zpack tessalon made her cough worse continue OTC meds. rest and fluids as able. [facility] Other Clinical Note 06-06-2022 Note Date & Type Note Facility 06-06-2022 Note OPERATIVE NOTE OPERATION DATE: 06/06/2022 PREOPERATIVE DIAGNOSIS: Enlarging lipoma right mid back. POSTOPERATIVE DIAGNOSIS: Enlarging lipoma right mid back. PROCEDURE: Excisional biopsy lipoma of right mid back. SURGEON: Bartolo Tinajero M.D. ANESTHESIA: Local with 0.5% Marcaine plain. ESTIMATED BLOOD LOSS: Less than 3 mL. INDICATIONS AND CONSENT: Patient is a 31-year-old female with history of enlarging lipoma right mid back. Indications, risks, benefits, alternatives of proceeding with excisional biopsy under local anesthesia were explained extensively to the patient, including risks of bleeding, infection, scarring, pain, recurrence, need for further surgery. All of her questions were answered. Informed consent was obtained. PROCEDURE: Patient brought to the operating room, placed in the left lateral decubitus position. She was prepped and draped in the usual sterile fashion. The skin overlying the lesion as well as the subcutaneous tissue was injected with 0.5% Marcaine plain. Oblique incision was made over the long axis of the lesion in the area of the skin crease and carried down through subcutaneous tissue using sharp dissection. Approximately a 3 x 4 cm lipoma was identified. It had projections, was not well encapsulated with scarring around it. It was carefully freed up using sharp dissection. Hemostasis was achieved with electrocautery. It was sent off to Pathology. The wound was irrigated. The subcutaneous tissue was re-approximated using interrupted 3-0 Monocryl suture. The skin was closed with a running 4-0 subcuticular Monocryl suture and skin glue. Sterile dressing was applied. Sponge and needle counts were correct x2 per nursing personnel. Patient tolerated procedure well, was discharged home in good condition. CC: Patient's family physician [facility] Clinical Note 05-15-2022 Note Date & Type Note Facility 05-15-2022 Note Chief Complaint consultation for left axillary cyst HPI Staff 31 year old female presents on self referral consultation for left axillary nodule. Reports small red nodule has been present for 4 months. Waxes and wanes in size. Does not spontaneously drain but she frequently expresses white material. After she expresses material, area decreases in pain and size temporarily. Never been on ATB for this in the past. History of Present Illness patient for evaluation of swelling left axilla; noticed pimple in area 4 months ago; has some drainage; area continues to swell, then decrease after compression/squeezing area; painful; no previous antibiotics; has similar area in groin that was a cyst. no fevers. Review of Systems ROS - Provider Constitutional: no fever, no sweats, no weight loss. Eyes: no glasses, no blurred vision, no visual loss. ENMT: no dentures, no hoarseness, no swallowing difficulties, no hearing loss, no ear infection(s), no nose bleeds. Cardiovascular: normal blood pressure, no chest pain, regular heartbeat, no heart murmur. Respiratory: no shortness of breath, no cough, no asthma, no wheezing. Gastrointestinal: no nausea, no vomiting, no diarrhea, no constipation, no blood in stool, no change in bowel habits, no abdominal pain, no hepatitis. Genitourinary: no kidney stones, no urine infection, no dysuria. Musculoskeletal: no pain, no weakness. Skin: no changing moles, no rash, yes skin lumps. Neurologic: no seizures, no epilepsy, no headache. Psychiatric: no emotional or psychiatric problem. Heme/Lymph: no bleeding problems, no anemia, no blood clots, no transfusions. Allergy/Immunologic: no swollen lymph nodes/glands, no IV drug abuse. Other: Additional ROS info: Except as noted in the above Review of Systems and in the History of Present Illness, all other systems have been reviewed and are negative or noncontributory. Physical Exam Vitals & Measurements HR: 74(Peripheral) RR: 16 BP: 120/74 HT: 69 in HT: 175 cm WT: 81 kg WT: 178.2 lb BMI: 26.45 skin: left axilla with induration, dilated hair follicle; no drainage, no fluctuance Assessment/Plan 1. Furuncle of left axilla (L02.422: Furuncle of left axilla) avoid irritation or squeezing area; trial of antibiotics; will recheck at time of lipoma excision; call sooner if problems/questions Ordered: cephalexin, 250 mg = 1 cap(s), Oral, TID, X 5 day(s), # 15 cap(s), Refills(s) 0, Pharmacy: [facility]/pharmacy #[id number], 175, cm, 05/15/22 15:04:00 EDT, Height/Length Dosing, 81, kg, 05/15/22 15:04:00 EDT, Weight Dosing Follow-up No qualifying data available Problem List/Past Medical History Ongoing BMI 26.0-26.9,adult Folliculitis of axilla Lipoma of back Varicosities of vulva Historical No qualifying data Procedure/Surgical History Excision of cyst, Extraction of wisdom tooth. Medications Keflex 250 mg Cap, 250 mg= 1 cap(s), Oral, TID norethindrone 0.35 mg oral tablet, 0.35 mg= 1 tab(s), Oral, Daily Allergies No Known Allergies No Known Medication Allergies Social History Alcohol - Denies Alcohol Use, 04/27/2022 Substance Abuse - Denies Substance Abuse, 04/27/2022 Tobacco Never (less than 100 in lifetime) Tobacco Use:. Never Smokeless Tobacco Use:., 04/27/2022 Family History Family history is negative [facility] Comment on above: Result Comment: Elec tronically Signed By: GEETHA SIEGEL, Bartolo Cash\Date and Time Signed: 05/15/22 17:04 EDT Clinical Note 04-27-2022 Note Date & Type Note Facility 04-27-2022 Note Chief Complaint consultation for lipoma HPI Staff 31 year old female presents on consultation from Dr. Godoy for lipoma. Reports mass greater than 6 years to right thoracic region. Gradual increase in size. Denies pain. There is an occasional numbness feeling to the area. History of Present Illness 31 yo female referred for enlarging lipoma right back, present for 6 years; sore at times no skin changes, no injury to area; no asa or NSAID use; Review of Systems PHQ Score Initial Depression Screen Score: 0 ROS - Provider Constitutional: no fever, no sweats, no weight loss. Eyes: no glasses, no blurred vision, no visual loss. ENMT: no dentures, no hoarseness, no swallowing difficulties, no hearing loss, no ear infection(s), no nose bleeds. Cardiovascular: normal blood pressure, no chest pain, regular heartbeat, no heart murmur. Respiratory: no shortness of breath, no cough, no asthma, no wheezing. Gastrointestinal: no nausea, no vomiting, no diarrhea, no constipation, no blood in stool, no change in bowel habits, no abdominal pain, no hepatitis. Genitourinary: no kidney stones, no urine infection, no dysuria. Musculoskeletal: no pain, no weakness. Skin: no changing moles, no rash, yes skin lumps. Neurologic: no seizures, no epilepsy, no headache. Psychiatric: no emotional or psychiatric problem. Heme/Lymph: no bleeding problems, no anemia, no blood clots, no transfusions. Allergy/Immunologic: no swollen lymph nodes/glands, no IV drug abuse. Other: Additional ROS info: Except as noted in the above Review of Systems and in the History of Present Illness, all other systems have been reviewed and are negative or noncontributory. Physical Exam Vitals & Measurements HR: 72(Peripheral) RR: 16 BP: 106/74 HT: 69 in HT: 175 cm WT: 81.2 kg WT: 178.64 lb BMI: 26.51 HEENT: normal conjunctiva, sclera clear, no scleral icterus, EOM intact, PERRLA, oral mucosa moist without lesions. Neck: trachea midline, no mass, symmetric, no thyromegaly or nodules, no adenopathy Respiratory: lungs CTA, respirations non labored. Cardiovascular: regular rate and rhythm, no murmur, no pedal edema or varicosities. Lymphatic: no cervical adenopathy, Musculoskeletal: normal gait, digits and nails without infection, nodes, cyanosis, clubbing. Skin: no rashes, no lesions, no ulcers, 5 cm subcutaneous nodule, soft, mobile, no skin changes Psychiatric/Neuro: oriented to time, place, person, judgement normal, affect appropriate for age, insight intact, no focal deficits. Tests: , review of old records completed, Discussed surgical options, risks, and possible complications with patient. Assessment/Plan 1. Lipoma of back (D17.1: Benign lipomatous neoplasm of skin and subcutaneous tissue of trunk) plan excisional biopsy under local anesthesia at [facility], informed consent obtained. Follow-up No qualifying data available Problem List/Past Medical History Ongoing BMI 26.0-26.9,adult Lipoma of back Varicosities of vulva Historical No qualifying data Procedure/Surgical History Excision of cyst, Extraction of wisdom tooth. Medications norethindrone 0.35 mg oral tablet, 0.35 mg= 1 tab(s), Oral, Daily Allergies No Known Allergies No Known Medication Allergies Social History Alcohol - Denies Alcohol Use, 04/27/2022 Substance Abuse - Denies Substance Abuse, 04/27/2022 Tobacco Never (less than 100 in lifetime) Tobacco Use:. Never Smokeless Tobacco Use:., 04/27/2022 Family History Family history is negative [facility] Comment on above: Result Comment: Elec tronically Signed By: GEETHA SIEGEL, Bartolo Cash\Date and Time Signed: 04/27/22 14:31 EDT Evaluation + Plan note Note Date & Type Note Facility Evaluation + Plan note No data available for this section [facility] [place] Evaluation note Note Date & Type Note Facility Evaluation note [facility] general Narrative - Reported Note Date & Type Note Facility History general Narrative - Reported Type Medical History Problem Title : comp liance with medical treatment, Problem Description : compliance with medical treatment, Problem Comment : Done, Problem Status : Active,, Medical History Problem Title : Depr ession Screening, Problem Description : Depression Screening, Problem Comment : Negative, Problem Status : Active,, Medical History Problem Title : no k nown problems, Problem Description : no known problems, Problem Comment : F, Problem Status : Active,, Medical History Problem Title : No p ertinent past medical history, Problem Status : Inactive,, Medical History Problem Title : past medical history reviewed, Problem Description : past medical history reviewed, Problem Comment : reviewed - no changes required, Problem Status : Active,, Medical History Problem Title : PHQ2 Questionairre Score, Problem Description : PHQ2 Questionairre Score, Problem Comment : 0, Problem Status : Active,, Medical History Problem Title : PHQ9 Question One score, Problem Description : PHQ9 Question One score, Problem Comment : 0, Problem Status : Active,, Medical History Problem Title : PHQ9 Question Two score, Problem Description : PHQ9 Question Two score, Problem Comment : 0, Problem Status : Active,, Medical History Problem Title : Prob lems Reconciled, Problem Status : Active,, Medical History Problem Title : Unsp ecified Diagnosis, Problem Status : Active,, Surgical History Problem Title : Cyst Removed, Problem Comment : in groin, Problem Status : Active, Attribute Title : Right, Surgical History Problem Title : Oral Surgery, Problem Comment : wisdom teeth, Problem Status : Active, Surgical History Problem Title : past surgical history reviewed, Problem Description : past surgical history reviewed, Problem Comment : reviewed - no changes required, Problem Status : Inactive, Surgical History Problem Title : surg ical procedures, hx of, Problem Description : surgical procedures, hx of, Problem Comment : removal sebaceous cyst - R groin 2016, Problem Status : Inactive, [facility] Other Hospital Discharge instructions Note Date & Type Note Facility Hospital Discharge instructions No data available for this section [facility] Progress note Note Date & Type Note Facility Progress note No data available for this section [facility] [place] Summary Purpose Family History No Family History Records FoundNo Family History Records FoundNo Family History Records FoundNo Family History Records Found Advance Directives Advance Directive Response Recorded Date/ Time Advance Directives No November 23, 2023 9:41am Chief Complaint and Reason for Visit Chief Complaint Sore throat, sinus c ongestion Additional Source Comments Patient Care team informatio n (unrecognized section and content) Team Status: Active Member Role Status Dates Charlee Godoy MD Primary Care Provider Active Team Status: Inactive Member Role Status Dates Lena Limon APRN Attending Provider Active S tart: November 23, 2023 End: November 23, 2023 Charlee Godoy MD Primary Care Provider Active Start: November 23, 2023 End: November 23, 2023 INFORMATION SOURCE (unrecogn ized section and content) DATE CREATED AUTHOR 06/14/2022 [facility] DATE CREATED AUTHOR AUTHOR'S ORGANIZ ATION 2022 Juan M Donaldson [facility] DATE CREATED AUTHOR AUTHOR'S ORGANIZ ATION 11/30/2023 [facility] EPIC DATE CREATED AUTHOR AUTHOR'S ORGANIZ ATION 05/09/2024 [facility] EPIC REASON FOR VISIT (unrecogniz ed section and content) on going cough Goals (unrecognized section and content) Goals may be documented in a n alternate section FOR RECORDS PERTAINING TO PATIENTS WHO ARE OR HAVE BEEN ENROLLED IN A CHEMICAL DEPENDENCY/SUBSTANCEABUSE PROGRAM, SOME INFORMATION MAY BE OMITTED. This clinical summary was aggregated from multiple sources. Caution should be exercised in using it in the provision of clinical care. This summary normalizes information from multiple sources, and as a consequence, information in this document may materially change the coding, format and clinical context of patient data. In addition, data may be omitted in some cases. CLINICAL DECISIONS SHOULD BE BASED ON THE PRIMARY CLINICAL RECORDS. [facility]. provides no warranty or guarantee of the accuracy or completeness of information in this document.
[2024-12-15 12:08] LABS: Age Gdln ACOG Testing Note (.); HPV Aptima Negative (Negative); IGP, Aptima HPV, rfx 16/18,45 Note (.)
== END 2024-12-08 18:58 | disposition home or self-care (01) ==
LOC: LAB 18:57
PROVIDERS: PCP Family Medicine; Visit Provider Obstetrics & Gynecology
DX: Z01.419 Encounter for gynecological examination (general) (routine) without abnormal findings (principal)
CPT/HCPCS: 87624; 88175

== ENCOUNTER 2024-12-09 13:11 | Outpatient (OUT) | payer OTHER, SELFPAY ==
--- OUTSIDE RECORDS SUMMARY | 2024-12-09 13:14 | XMS_ITS | CCD ---
Author Organization [facility] Care Team Providers Care Intranet Support Name Role Phone CHARLEE GODOY Primary Care Physician [phone] REQUEST, DR GAFFNEY LISTED Primary Care Unavaila [...] NONE LISTED Primary Care Unavailcarmen ARMENDARIZ, DR GALICIA Admitting Unavailable KALA, DR GALICIA Attending Unavailable [...] Medication Allergies] Propensity to adverse reactions (disorder) [facility] Repository (1 source) patient allergy list reviewed by nurse or physicia Propensity to adverse reactions Comment:Done Enverv Other (1 source) Allergies Reconciled Propensity to adverse reactions Unknown [employer] [facility] [employer] Other Medications Current Medications Medication Drug Class(es) Dates Sig (Normalized) Sig (Original) amoxicillin 875 mg / clavulanate 125 mg oral tablet (1 source) Penicillin-class Antibacterial Start: 3 take 1 tablet by mouth every twelve hours Amoxicillin-Pot Clavulanate 875-125 MG 1 tablet Orally every 12 hrs for 10 day(s) Jun, Active azithromycin 250 mg oral tablet (1 source) Macrolide Antimicrobial Start: 4 Azithromycin 250 MG as directed Orally 2 tabs po today, then 1 tab daily x 4 more days for 5 Jul, Active benzonatate 100 mg oral capsule (1 source) Non-narcotic Antitussive Start: 3 take 1 capsule by mouth three times daily as needed Tessalon Perles 100 MG 1 capsule as needed Orally Three times a day for 7 days Jun, Active cephalexin 250 mg oral capsule (1 source) Cephalosporin Antibacterial Start: 2 End: 2 take 1 capsule by mouth three times daily Keflex 250 mg Cap 250 mg = 1 cap(s), Oral, TID, X 5 day(s), # 15 cap(s), Refills(s) 0, Pharmacy: [facility]/pharmacy #[id number], 175, cm, 05/15/22 15:04:00 EDT, Height/Length Dosing, 81, kg, 05/15/22 15:04:00 EDT, Weight Dosing Start Date: 05/15/22 Stop Date: 05/20/22 Status: Ordered drospirenone 4 mg oral tablet (2 sources) Progestin Start: 5 take 1 tablet by mouth once daily Drospirenone (Slynd) 4 MG tablet Indications: Hormone imbalance , Irregular menstrual cycle Take 4 mg by mouth Daily 28 tablet 11 12/08/2024 Active methylPREDNISolone 4 mg oral tablet (1 source) Corticosteroid Start: 3 methylPREDNISolone 4 MG as directed Orally daily dose take half with breakfast half with dinner for Jun, Active norethindrone 0.35 mg oral tablet (3 sources) Start: 2 take 1 tablet by mouth once daily norethindrone 0.35 mg oral tablet 0.35 mg = 1 tab(s), Oral, Daily, Refills(s) 0 Start Date: 04/20/22 Status: Ordered (1 source) Start: 2 ( Oral 1 daily ) Active -Hx Entry Oral daily for 0 *Pick strength-form from [employer] for eRX* Mar, Not-Taking/PRN Completed/Discontinued Medications Medication Drug Class(es) Dates Sig (Normalized) Sig (Original) aspirin 81 mg oral tablet (1 source) Platelet Aggregation Inhibitor, Nonsteroidal Anti-inflammatory Drug Start: 12-05-2021 take 1 tablet by mouth once daily as needed Aspir-Low 81MG Aspir-Low 81MG, 1 (one) Tablet daily # 60, 12/05/2021, Ref. x2. Active Oral daily for 60 *Pick strength-form from [employer] for eRX* November, Not-Taking/PRN ethinyl estradiol 0.035 mg / norgestimate 0.25 mg oral tablet (4 sources) Progestin, Estrogen Start: 05-05-2024 End: 12-08-2024 take 1 tablet by mouth once daily, then take 1 tablet by mouth once daily Sprintec 28 0.25-35 MG-MCG tablet Indications: control counseling Take 1 tablet by mouth Daily Take 1 tablet by mouth daily 84 tablet 3 05/05/2024 12/08/2024 Discontinued (Other) Start: 11-23-2023 take 1 tablet by aliyah once daily Norgestimate-Ethinyl Estradiol (Marian) 0.25-35 mg-mcg tablet Active 1 TAB PO Daily November 23, 2023 12:00am fluticasone propionate 0.05 mg/actuat metered dose nasal [...] Onset: 07-10-2021 Resolved: 07-10-2021 Episodic Menstrual disorders (8 sources) Irregular menstruation, unspecified; Translations: [Secondary amenorrhea] [...] varices; 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] 04-20-2022 Episodic Other endocrine disorders (2 sources) Polycystic ovary syndrome; Translations: [Polycystic ovarian syndrome] 12-08-2024 Chronic Other endocrine disorders (2 sources) Disorder of endocrine system; Translations: [Endocrine disorder, unspecified] 12-08-2024 Episodic Other female genital disorders (1 source) [...] 11-23-2023 FLUBV Ag IA.rapid Ql (Nph) Negative [facility] No Panel Informationon 11-22 Influenza Type A (Rapid) Negative [facility] POC SARS CoV-2 Antigen Negative [facility] No Panel InformationOrdered By: Lena Limon on 11-23-2023 Quick Strep (POC) [facility] Office/Clini c Noteon 2022 General [...] 04/27/2022 Family History Family history is negative Normal [facility] Comment on above: Result Comment: Elec tronically Signed By: GEETHA SIEGEL, Bartolo Cash\Date and Time Signed: 07/01/22 19:02 EST Pathology Noteon 06-29-2022 Pathology Note [id number] 1#1.00CD:127 Normal [facility] Pathology Noteon 06-11-2022 Pathology Note [id number] #1.00CD:127 Normal [facility] Operative Reporton 2 Operative Report [id number] #1.00CD:127 Normal [facility] Pre-Certification Formon Pre-Certification Form [id number] 3#1.00CD:127 Normal [facility] Ambulatory Visit Summaryon 1 Ambulatory Visit Summary TAMMIE MARES :1990 Visit Date:05/15/2022 Ambulatory Visit Instructions Your Care Team Attending Physician - GEETHA SIEGEL, Bartolo Martínez Primary Care Physician - WALT SIEGEL, CHARLEE This Is Your Medications List norethindrone (norethindrone [...] 26.0-26.9,adult Lipoma of back Varicosities of vulva [facility] Consent for Procedure/Surger yon 05-03-2022 Consent for Procedure/Surgery [id number] #1.00CD:127 Normal [facility] Facesheeton 04-30-2022 Facesheet [id number] #1.00CD:127 [facility] Physician Referralon 022 Physician Referral [id number] #1.00CD:127 [facility] CBC AUTO DIFFon 02-21-2022 BASO # 0.1 103/ul Normal 0.0-0.1 [facility] Comment on above: Performed By: #### C BC #### [facility] [address] [place] [address] Dr. Jose Hou Basophils/100 WBC (Bld) 0.5 % Normal 0.2-2.0 [facility] Comment on above: Performed By: #### C BC #### [facility] [address] [place] [address] Dr. Jose Hou EO # 0.4 103/ul Normal 0.0-0.7 [facility] Comment on above: Performed By: #### C BC #### [facility] [address] [address] [address] Jose Hou Eosinophils/100 WBC (Bld) 3.9 % Normal 0.9-7.0 [facility] Comment on above: Performed By: #### C BC #### [facility] [address] [place] [address] Dr. Jose Hou Erythrocyte distribution width (RBC) [Ratio] 12.7 % Normal 11.0-15.0 [facility] Comment on above: Performed By: #### C BC #### [facility] [address] [place] [address] Dr. Jose Hou Hematocrit (Bld) [Volume fraction] 31.1 % Critically low 36.0-48.0 [facility] Comment on above: Performed By: #### C BC #### [facility] [address] [place] [address] Dr. Jose Hou Hemoglobin (Bld) [Mass/Vol] 10.1 g/dL Critically low 12.0-16.0 [facility] Comment on above: Performed By: #### C BC #### [facility] [address] [place] [address] Dr. Jose Hou IG # 0.07 10e3/ul Critically high 0.00-0.03 [facility] Comment on above: Performed By: #### C BC #### [facility] [address] [place] [address] Dr. Jose Hou IG % 0.8 % Critically high 0.0-0.5 [facility] Comment on above: Performed By: #### C BC #### [facility] [address] [place] [address] Dr. Jose Hou LYMPH # 1.6 103/ul Normal 1.2-3.8 [facility] Comment on above: Performed By: #### C BC #### [facility] [address] [place] [address] Dr. Jose Hou Lymphocytes/100 WBC (Bld) 17.7 % Critically low 20.5-60.0 [facility] Comment on above: Performed By: #### C BC #### [facility] [address] [place] [address] Dr. Jose Hou MANUAL DIFF REQ NO Normal [facility] Comment on above: Performed By: #### C BC #### [facility] [address] [place] [address] Dr. Jose Hou MCH (RBC) [Entitic mass] 30.3 pg Normal 26.7-34.0 [facility] Comment on above: Performed By: #### C BC #### [facility] [address] [place] [address] Dr. Jose Hou MCHC (RBC) [Mass/Vol] 32.5 g/dL Normal 29.9-35.2 [facility] Comment on above: Performed By: #### C BC #### [facility] [address] [place] [address] Dr. Jose Hou MCV (RBC) [Entitic vol] 93.4 fL Normal 81.0-99.0 [facility] Comment on above: Performed By: #### C BC #### [facility] [address] [place] [address] Dr. Jose Hou MONO # 0.7 103/ul Normal 0.3-0.8 [facility] Comment on above: Performed By: #### C BC #### [facility] [address] [place] [address] Dr. Jose Hou Monocytes/100 WBC (Bld) 7.0 % Normal 1.7-12.0 [facility] Comment on above: Performed By: #### C BC #### [facility] [address] [place] [address] Dr. Jose Hou NEUT # 6.5 103/ul Normal 1.4-6.5 [facility] Comment on above: Performed By: #### C BC #### [facility] [address] [place] [address] Dr. Jose Hou Neutrophils/100 WBC (Bld) 70.1 % Normal 43.0-75.0 [facility] Comment on above: Performed By: #### C BC #### [facility] [address] [place] [address] Dr. Jose Hou Platelet mean volume (Bld) [Entitic vol] 12.7 fL Normal 9.5-13.5 [facility] Comment on above: Performed By: #### C BC #### [facility] [address] [address] [address] Jose Hou PLT 161 103/ul Normal 150-450 [facility] Comment on above: Performed By: #### C BC #### [facility] [address] [address] [address] Jose Hou RBC 3.33 106/ul Critically low 4.20-5.40 [facility] Comment on above: Performed By: #### C BC #### [facility] [address] [place] [address] Dr. Jose Hou WBC 9.3 103/ul Normal 4.0-11.0 [facility] Comment on above: Performed By: #### C BC #### [facility] [address] [place] [address] Dr. Jose Hou CBC AUTO DIFFon 02-20-2022 BASO # 0.0 103/ul Normal 0.0-0.1 [facility] Comment on above: Performed By: #### C BC #### [facility] [address] [place] [address] Dr. Jose Hou Basophils/100 WBC (Bld) 0.4 % Normal 0.2-2.0 [facility] Comment on above: Performed By: #### C BC #### [facility] [address] [place] [address] Dr. Jose Hou EO # 0.3 103/ul Normal 0.0-0.7 [facility] Comment on above: Performed By: #### C BC #### [facility] [address] [place] [address] Dr. Jose Hou Eosinophils/100 WBC (Bld) 3.8 % Normal 0.9-7.0 [facility] Comment on above: Performed By: #### C BC #### [facility] [address] [place] [address] Dr. Jose Hou Erythrocyte distribution width (RBC) [Ratio] 12.7 % Normal 11.0-15.0 [facility] Comment on above: Performed By: #### C BC #### [facility] [address] [place] [address] Dr. Jose Hou Hematocrit (Bld) [Volume fraction] 30.9 % Critically low 36.0-48.0 [facility] Comment on above: Performed By: #### C BC #### [facility] [address] [place] [address] Dr. Jose Hou Hemoglobin (Bld) [Mass/Vol] 10.4 g/dL Critically low 12.0-16.0 [facility] Comment on above: Performed By: #### C BC #### [facility] [address] [place] [address] Dr. Jose Hou IG # 0.05 10e3/ul Critically high 0.00-0.03 [facility] Comment on above: Performed By: #### C BC #### [facility] [address] [place] [address] Dr. Jose Hou IG % 0.6 % Critically high 0.0-0.5 [facility] Comment on above: Performed By: #### C BC #### [facility] [address] [place] [address] Dr. Jose Hou LYMPH # 1.4 103/ul Normal 1.2-3.8 [facility] Comment on above: Performed By: #### C BC #### [facility] [address] [place] [address] Dr. Jose Hou Lymphocytes/100 WBC (Bld) 14.9 % Critically low 20.5-60.0 [facility] Comment on above: Performed By: #### C BC #### [facility] [address] [place] [address] Dr. Jose Hou MANUAL DIFF REQ NO Normal [facility] Comment on above: Performed By: #### C BC #### [facility] [address] [place] [address] Dr. Jose Hou MCH (RBC) [Entitic mass] 31.1 pg Normal 26.7-34.0 [facility] Comment on above: Performed By: #### C BC #### [facility] [address] [place] [address] Dr. Jose Hou MCHC (RBC) [Mass/Vol] 33.7 g/dL Normal 29.9-35.2 [facility] Comment on above: Performed By: #### C BC #### [facility] [address] [place] [address] Dr. Jose Hou MCV (RBC) [Entitic vol] 92.5 fL Normal 81.0-99.0 [facility] Comment on above: Performed By: #### C BC #### [facility] [address] [place] [address] Dr. Jose Hou MONO # 0.5 103/ul Normal 0.3-0.8 [facility] Comment on above: Performed By: #### C BC #### [facility] [address] [place] [address] Dr. Jose Hou Monocytes/100 WBC (Bld) 5.4 % Normal 1.7-12.0 [facility] Comment on above: Performed By: #### C BC #### [facility] [address] [place] [address] Dr. Jose Hou NEUT # 6.8 103/ul Critically high 1.4-6.5 [facility] Comment on above: Performed By: #### C BC #### [facility] [address] [place] [address] Dr. Jose Hou Neutrophils/100 WBC (Bld) 74.9 % Normal 43.0-75.0 [facility] Comment on above: Performed By: #### C BC #### [facility] [address] [place] [address] Dr. Jose Hou Platelet mean volume (Bld) [Entitic vol] 12.8 fL Normal 9.5-13.5 [facility] Comment on above: Performed By: #### C BC #### [facility] [address] [place] [address] Dr. Jose Hou PLT 199 103/ul Normal 150-450 [facility] Comment on above: Performed By: #### C BC #### [facility] [address] [address] [address] Jose Hou RBC 3.34 106/ul Critically low 4.20-5.40 [facility] Comment on above: Performed By: #### C BC #### [facility] [address] [address] [address] Jose Hou WBC 9.0 103/ul Normal 4.0-11.0 [facility] Comment on above: Performed By: #### C BC #### [facility] [address] [address] [address] Jose Hou Covid-19 PCR ([facility])on SARS-CoV-2 (COVID-19) RNA ABRAN+probe Ql (Unsp spec) Not detected Normal NOT DETECTED [facility] Comment on above: Result Comment: When diagnostic [...] for this test is supported by the [place] of [employer] and Human Service's declaration that [...] used). Performed By: #### V AGINT #### [facility] [address] [address] [address] Jose Hou DRUG SCREEN RAPID (URINE)on 02-20-2022 AMP Negative Normal NEGATIVE [facility] Comment on above: Performed By: #### D RUGRPD #### [facility] [address] [place] [address] Dr. Jose Hou BAR Negative Normal NEGATIVE [facility] Comment on above: Performed By: #### D RUGRPD #### [facility] [address] [place] [address] Dr. Jose Hou BUP Negative Normal NEGATIVE [facility] Comment on above: Performed By: #### D RUGRPD #### [facility] [address] [place] [address] Dr. Jose Hou BZO Negative Normal NEGATIVE [facility] Comment on above: Performed By: #### D RUGRPD #### [facility] [address] [place] [address] Dr. Jose Hou GOMEZ Negative Normal NEGATIVE [facility] Comment on above: Performed By: #### D RUGRPD #### [facility] [address] [place] [address] Dr. Jose Hou CUT-OFFS SEE BELOW Normal [facility] Comment on above: Result Comment: AMP [...] ng/mL Performed By: #### D RUGRPD #### [facility] [address] [place] [address] Dr. Jose Hou DRUG CUT HEADER DRUG CLASS TEST SYSTEM CUT-OFF CONCENTRATIONS ARE FOLLOWS: Normal [facility] Comment on above: Performed By: #### D RUGRPD #### [facility] [address] [place] [address] Dr. Jose Hou mAMP Negative Normal NEGATIVE [facility] Comment on above: Performed By: #### D RUGRPD #### [facility] [address] [place] [address] Dr. Jose Hou MTD Negative Normal NEGATIVE [facility] Comment on above: Performed By: #### D RUGRPD #### [facility] [address] [place] [address] Dr. Jose Hou OPI Negative Normal NEGATIVE [facility] Comment on above: Performed By: #### D RUGRPD #### [facility] [address] [address] [address] Jose Hou OXY Negative Normal NEGATIVE [facility] Comment on above: Performed By: #### D RUGRPD #### [facility] [address] [place] [address] Dr. Jose Hou PCP Negative Normal NEGATIVE [facility] Comment on above: Performed By: #### D RUGRPD #### [facility] [address] [place] [address] Dr. Jose Hou PPX Negative Normal NEGATIVE [facility] Comment on above: Performed By: #### D RUGRPD #### [facility] [address] [place] [address] Dr. Jose Hou TCA Negative Normal NEGATIVE [facility] Comment on above: Performed By: #### D RUGRPD #### [facility] [address] [place] [address] Dr. Jose Hou THC Negative Normal NEGATIVE [facility] Comment on above: Performed By: #### D RUGRPD #### [facility] [address] [place] [address] Dr. Jose Hou TYPE AND SCREENon 02-20-2022 TYPE AND SCREEN Negative Normal [facility] Comment on above: Performed By: #### T NS #### [facility] [address] [place] [address] Dr. Jose Hou GROUP B STREP CULTUREon 01-19 S. agalactiae Ag Ql (Unsp spec) Culture Observations: NEGATIVE FOR GROUP B STREPTOCOCCUS. Normal [facility] Comment on above: Performed By: #### V AGINT #### [facility] [address] [place] [address] Dr. Jose Hou CBC AUTO DIFFon 12-27-2021 BASO # 0.0 103/ul Normal 0.0-0.1 [facility] Comment on above: Performed By: #### C T/NGNA #### [facility] [address] [place] [address] Dr. Jose Hou Basophils/100 WBC (Bld) 0.4 % Normal 0.2-2.0 [facility] Comment on above: Performed By: #### C T/NGNA #### [facility] [address] [place] [address] Dr. Jose Hou EO # 0.1 103/ul Normal 0.0-0.7 [facility] Comment on above: Performed By: #### C T/NGNA #### [facility] [address] [place] [address] Dr. Jose Hou Eosinophils/100 WBC (Bld) 1.2 % Normal 0.9-7.0 [facility] Comment on above: Performed By: #### C T/NGNA #### [facility] [address] [place] [address] Dr. Jose Hou Erythrocyte distribution width (RBC) [Ratio] 12.4 % Normal 11.0-15.0 [facility] Comment on above: Performed By: #### C T/NGNA #### [facility] [address] [place] [address] Dr. Jose Hou Hematocrit (Bld) [Volume fraction] 33.7 % Critically low 36.0-48.0 [facility] Comment on above: Performed By: #### C T/NGNA #### [facility] [address] [place] [address] Dr. Jose Hou Hemoglobin (Bld) [Mass/Vol] 11.3 g/dL Critically low 12.0-16.0 [facility] Comment on above: Performed By: #### C T/NGNA #### [facility] [address] [place] [address] Dr. Jose Hou IG # 0.08 10e3/ul Critically high 0.00-0.03 [facility] Comment on above: Performed By: #### C T/NGNA #### [facility] [address] [place] [address] Dr. Jose Hou IG % 0.7 % Critically high 0.0-0.5 [facility] Comment on above: Performed By: #### C T/NGNA #### [facility] [address] [place] [address] Dr. Jose Hou LYMPH # 1.6 103/ul Normal 1.2-3.8 [facility] Comment on above: Performed By: #### C T/NGNA #### [facility] [address] [place] [address] Dr. Jose Hou Lymphocytes/100 WBC (Bld) 14.3 % Critically low 20.5-60.0 [facility] Comment on above: Performed By: #### C T/NGNA #### [facility] [address] [place] [address] Dr. Jose Hou MANUAL DIFF REQ NO Normal [facility] Comment on above: Performed By: #### C T/NGNA #### [facility] [address] [place] [address] Dr. Jose Hou MCH (RBC) [Entitic mass] 31.9 pg Normal 26.7-34.0 [facility] Comment on above: Performed By: #### C T/NGNA #### [facility] [address] [place] [address] Dr. Jose Hou MCHC (RBC) [Mass/Vol] 33.5 g/dL Normal 29.9-35.2 [facility] Comment on above: Performed By: #### C T/NGNA #### [facility] [address] [place] [address] Dr. Jose Hou MCV (RBC) [Entitic vol] 95.2 fL Normal 81.0-99.0 [facility] Comment on above: Performed By: #### C T/NGNA #### [facility] [address] [place] [address] Dr. Jose Hou MONO # 0.6 103/ul Normal 0.3-0.8 [facility] Comment on above: Performed By: #### C T/NGNA #### [facility] [address] [place] [address] Dr. Jose Hou Monocytes/100 WBC (Bld) 5.3 % Normal 1.7-12.0 [facility] Comment on above: Performed By: #### C T/NGNA #### [facility] [address] [place] [address] Dr. Jose Hou NEUT # 8.8 103/ul Critically high 1.4-6.5 [facility] Comment on above: Performed By: #### C T/NGNA #### [facility] [address] [place] [address] Dr. Jose Hou Neutrophils/100 WBC (Bld) 78.1 % Critically high 43.0-75.0 [facility] Comment on above: Performed By: #### C T/NGNA #### [facility] [address] [place] [address] Dr. Jose Hou Platelet mean volume (Bld) [Entitic vol] 12.2 fL Normal 9.5-13.5 [facility] Comment on above: Performed By: #### C T/NGNA #### [facility] [address] [place] [address] Dr. Jose Hou PLT 224 103/ul Normal 150-450 [facility] Comment on above: Performed By: #### C T/NGNA #### [facility] [address] [place] [address] Dr. Jose Hou RBC 3.54 106/ul Critically low 4.20-5.40 [facility] Comment on above: Performed By: #### C T/NGNA #### [facility] [address] [place] [address] Dr. Jose Hou WBC 11.2 103/ul Critically high 4.0-11.0 [facility] Comment on above: Performed By: #### C T/NGNA #### [facility] [address] [place], [place] [id number] Dr. Jose Hou GLUCOSE - 1HRon 11-21-2021 Glucose [Mass/Vol] 118 mg/dL Critically high 74-106 [facility] Comment on above: Performed By: #### G LU1HR #### [facility] [address] [place] [address] Dr. Jose Hou HEMOGRAM AND PLATELon 2021 Hematocrit (Bld) [Volume fraction] 37.8 % Normal 36.0-48.0 [facility] Comment on above: Performed By: #### V AGINT #### [facility] [address] [place] [address] Dr. Jose Hou Hemoglobin (Bld) [Mass/Vol] 12.5 g/dL Normal 12.0-16.0 [facility] Comment on above: Performed By: #### V AGINT #### [facility] [address] [place] [address] Dr. Jose Hou MCH (RBC) [Entitic mass] 31.6 pg Normal 26.7-34.0 [facility] Comment on above: Performed By: #### V AGINT #### [facility] [address] [place] [address] Dr. Jose Hou MCHC (RBC) [Mass/Vol] 33.1 g/dL Normal 29.9-35.2 [facility] Comment on above: Performed By: #### V AGINT #### [facility] [address] [place] [address] Dr. Jose Hou MCV (RBC) [Entitic vol] 95.5 fL Normal 81.0-99.0 [facility] Comment on above: Performed By: #### V AGINT #### [facility] [address] [place] [address] Dr. Jose Hou PLT 253 103/ul Normal 150-450 [facility] Comment on above: Performed By: #### V AGINT #### [facility] [address] [place] [address] Dr. Jose Hou RBC 3.96 106/ul Critically low 4.20-5.40 [facility] Comment on above: Performed By: #### V AGINT #### [facility] [address] [place], [place] [address] Dr. Jose Hou WBC 11.0 103/ul Normal 4.0-11.0 [facility] Comment on above: Performed By: #### V AGINT #### [facility] [address] [place], [place] [address] Dr. Jose Hou US PREG ANATOMY SINGLEon [...] by: SHELDON HUDSON Date: 2021-10-10 09:15 Normal [facility] PAP ACOG PANEL 2: 30 to 65on 09-12-2021 . . Normal [facility] Comment on above: Result Comment: Perf ormed at: WB Performed By: #### V AGINT #### [facility] [address] [place] [address] Dr. Jose Hou Age Gdln ACOG Testing 30-65 Normal [facility] Comment on above: Performed By: #### V AGINT #### [facility] [address] [place] [address] [address] Jose Hou DIAGNOSIS: Comment Normal [facility] Comment on above: Result Comment: NEGA TIVE FOR INTRAEPITHELIAL LESION OR MALIGNANCY. Performed at: WB Performed By: #### V AGINT #### [facility] [address] [place] [address] Dr. Jose Hou HPV Aptima Negative Normal Negative [facility] Comment on above: Result Comment: This nucleic acid amplification test detects fourteen high-risk HPV types (16,18,31,33,35,39,45,51,52,56,58,59,66,68) without differentiation. Performed at: =G Performed By: #### V AGINT #### [facility] [address] [place] [address] Dr. Jose Hou Methodology: Comment [facility] Comment on above: Result Comment: This liquid based ThinPrep(R) pap test was screened with the use of an image guided system. Performed at: WB Performed By: #### V AGINT #### [facility] [address] [place] [address] Dr. Jose Hou Note: Comment Normal [facility] Comment on above: Result Comment: The [...] WB Performed By: #### V AGINT #### [facility] [address] [place] [address] Dr. Jose Hou Performed by: Comment Normal [facility] Comment on above: Result Comment: Dafne Hudson, Field Supervisor (ASCP) Performed at: WB Performed By: #### V AGINT #### [facility] [address] [place] [address] [address] Jose Hou Specimen adequacy: Comment Normal [facility] Comment on above: Result Comment: Sati sfactory for evaluation. No endocervical component is identified. Performed at: WB Performed By: #### V AGINT #### [facility] [address] [place] [address] [address] Jose Hou CHLAMYDIA/GONOCOCCUS ABRAN (SW AB/URINE/PAPon 09-09-2021 Chlamydia trachomatis, ABRAN Negative Normal Negative [facility] Comment on above: Performed By: #### C T/NGNA #### [facility] [address] [place] [address] Dr. Jose Hou Neisseria gonorrhoeae, ABRAN Negative Normal Negative [facility] Comment on above: Performed By: #### C T/NGNA #### [facility] [address] [place] [address] [address] Jose Hou VAGINITIS/VAGINOSIS DNA PROB Sammy 09-08-2021 Alicia species Negative Normal Negative [facility] Comment on above: Performed By: #### V AGINT #### [facility] [address] [place] [address] Dr. Jose Hou Gardnerella vaginalis Negative Normal Negative [facility] Comment on above: Performed By: #### V AGINT #### [facility] [address] [place] [address] Dr. Jose Hou Trichomonas vaginalis Negative Normal Negative [facility] Comment on above: Performed By: #### V AGINT #### [facility] [address] [place] [address] Dr. Jose Hou HEP B SURFACE ANTIGEN SCREEN on 08-09-2021 HBsAg Screen Negative Normal Negative [facility] Comment on above: Performed By: #### V AGINT #### [facility] [address] [place] [address] Dr. Jose Hou HEPATITIS C VIRUS AB W/ REFL EX QUANTon 08-09-2021 HCV AB 0.1 s/co ratio Normal 0.0-0.9 [place] Comment on above: Performed By: #### V AGINT #### [facility] [address] [place] [address] Dr. Jose Hou Interpretation: Comment Normal [facility] Comment on above: Result Comment: Nega tive Not infected with HCV, unless recent infection is suspected or other evidence exists to indicate HCV infection. Performed By: #### V AGINT #### [facility] [address] [place] [address] Dr. Jose Hou HIV 1 AND 2 WITH REFLEXon HIV Screen 4th Generation wRfx Non-Reactive Normal Non Reactive [facility] Comment on above: Result Comment: HIV Negative HIV-1/HIV-2 antibodies and HIV-1 p24 antigen were NOT detected. There is no laboratory evidence of HIV infection. Performed By: #### V AGINT #### [facility] [address] [place] [address] Dr. Jose Hou RPR QUANTon 08-09-2021 Rapid Plasma Reagin, Quant Non-Reactive Normal NonRea<1:1 [facility] Comment on above: Performed By: #### C T/NGNA #### [facility] [address] [place] [address] Dr. Jose Hou RUBELLA AB IGGon 08-09-2021 Rubella Antibodies, IgG 3.89 index Normal Immune >0.99 [facility] Comment on above: Result Comment: Non- immune <0.90 Equivocal 0.90 - 0.99 Immune >0.99 Performed By: #### C T/NGNA #### [facility] [address] [place] [address] Dr. Jose Hou CBC AUTO DIFFon 08-08-2021 BASO # 0.1 103/ul Normal 0.0-0.1 [facility] Comment on above: Performed By: #### C T/NGNA #### [facility] [address] [place] [address] Dr. Jose Hou Basophils/100 WBC (Bld) 0.5 % Normal 0.2-2.0 [facility] Comment on above: Performed By: #### C T/NGNA #### [facility] [address] [place] [address] Dr. Jose Hou EO # 0.3 103/ul Normal 0.0-0.7 [facility] Comment on above: Performed By: #### C T/NGNA #### [facility] [address] [place] [address] Dr. Jose Hou Eosinophils/100 WBC (Bld) 2.6 % Normal 0.9-7.0 [facility] Comment on above: Performed By: #### C T/NGNA #### [facility] [address] [place] [address] Dr. Jose Hou Erythrocyte distribution width (RBC) [Ratio] 12.1 % Normal 11.0-15.0 [facility] Comment on above: Performed By: #### C T/NGNA #### [facility] [address] [place] [address] Dr. Jose Hou Hematocrit (Bld) [Volume fraction] 39.1 % Normal 36.0-48.0 [facility] Comment on above: Performed By: #### C T/NGNA #### [facility] [address] [place] [address] Dr. Jose Hou Hemoglobin (Bld) [Mass/Vol] 13.2 g/dL Normal 12.0-16.0 [facility] Comment on above: Performed By: #### C T/NGNA #### [facility] [address] [place] [address] Dr. Jose Hou IG # 0.05 10e3/ul Critically high 0.00-0.03 [facility] Comment on above: Performed By: #### C T/NGNA #### [facility] [address] [place] [address] Dr. Jose Hou IG % 0.4 % Normal 0.0-0.5 [facility] Comment on above: Performed By: #### C T/NGNA #### [facility] [address] [place] [address] Dr. Jose Hou LYMPH # 2.3 103/ul Normal 1.2-3.8 [facility] Comment on above: Performed By: #### C T/NGNA #### [facility] [address] [place] [address] Dr. Jose Hou Lymphocytes/100 WBC (Bld) 18.1 % Critically low 20.5-60.0 [facility] Comment on above: Performed By: #### C T/NGNA #### [facility] [address] [place] [address] Dr. Jose Hou MANUAL DIFF REQ NO Normal [facility] Comment on above: Performed By: #### C T/NGNA #### [facility] [address] [place] [address] Dr. Jose Hou MCH (RBC) [Entitic mass] 31.7 pg Normal 26.7-34.0 [facility] Comment on above: Performed By: #### C T/NGNA #### [facility] [address] [place] [address] Dr. Jose Hou MCHC (RBC) [Mass/Vol] 33.8 g/dL Normal 29.9-35.2 [facility] Comment on above: Performed By: #### C T/NGNA #### [facility] [address] [place] [address] Dr. Jose Hou MCV (RBC) [Entitic vol] 93.8 fL Normal 81.0-99.0 [facility] Comment on above: Performed By: #### C T/NGNA #### [facility] [address] [place] [address] Dr. Jose Hou MONO # 0.5 103/ul Normal 0.3-0.8 [facility] Comment on above: Performed By: #### C T/NGNA #### [facility] [address] [place] [address] Dr. Jose Hou Monocytes/100 WBC (Bld) 4.2 % Normal 1.7-12.0 [facility] Comment on above: Performed By: #### C T/NGNA #### [facility] [address] [place] [address] [address] Jose Hou NEUT # 9.3 103/ul Critically high 1.4-6.5 [facility] Comment on above: Performed By: #### C T/NGNA #### [facility] [address] [place] [address] Dr. Jose Hou Neutrophils/100 WBC (Bld) 74.2 % Normal 43.0-75.0 [facility] Comment on above: Performed By: #### C T/NGNA #### [facility] [address] [place] [address] Dr. Jose Hou Platelet mean volume (Bld) [Entitic vol] 11.4 fL Normal 9.5-13.5 [facility] Comment on above: Performed By: #### C T/NGNA #### [facility] [address] [place] [address] Dr. Jose Hou PLT 280 103/ul Normal 150-450 [facility] Comment on above: Performed By: #### C T/NGNA #### [facility] [address] [place] [address] Dr. Jose Hou RBC 4.17 106/ul Critically low 4.20-5.40 [facility] Comment on above: Performed By: #### C T/NGNA #### [facility] [address] [place] [address] Dr. Jose Hou WBC 12.5 103/ul Critically high 4.0-11.0 [facility] Comment on above: Performed By: #### C T/NGNA #### [facility] [address] [place] [address] Dr. Jose Hou GLYCOHEMOGLOBIN A1Con 2021 ADA RECOMMENDATION ADA THERAPEUTIC TARGET 6.0 - 7.0 ACTION SUGGESTED > 7.0 Normal [facility] Comment on above: Performed By: #### A 1C #### [facility] [address] [place] [address] Dr. Jose Hou Glucose [Mass/Vol] 97 mg/dL Normal [facility] Comment on above: Performed By: #### A 1C #### [facility] [address] [place] [address] Dr. Jose Hou HbA1c (Bld) [Mass fraction] 5.0 % Normal <=6.0 [facility] Comment on above: Performed By: #### A 1C #### [facility] [address] [place] [address] Dr. Jose Hou TYPE AND SCREENon 08-08-2021 TYPE AND SCREEN Negative Normal [facility] Comment on above: Performed By: #### V AGINT #### [facility] [address] [place] [address] Dr. Jose Hou CULTURE URINEon 07-10-2021 CULTURE URINE Culture Observations: LIGHT GROWTH OF MIXED GENITAL DENA. NO POTENTIAL PATHOGENS SEEN. Normal [facility] Comment on above: Performed By: #### U RCX #### [facility] [address] [place] [address] Dr. Jose Hou US PREG TVon 07-08-2021 [...] by: EFRAIN GABRIEL Date: 2021-07-08 08:03 Normal [facility] Vital Signs Date Time Vital Sign Value Performing Clinician Facility 12-08-2024 11:50-0400 Body weight 79.83 kg [place] Phone: [facility] 11-23-2023 10:06-0400 Body height 175.26 cm [facility] 11-23-2023 10:06-0400 Body mass index (BMI) [Ratio] 25.8 kg/m2 [facility] 11-23-2023 10:06-0400 Body temperature 97.8 [degF] [facility] 11-23-2023 10:06-0400 Body weight 79.37 kg [facility] 11-23-2023 10:06-0400 Heart rate 86 /min [facility] 11-23-2023 10:06-0400 Respiratory rate 16 /min [facility] 11-23-2023 10:06-0400 SaO2% (BldA) [Mass fraction] 97 % [facility] 07-23-2023 09:15-0500 Body height 175.26 cm Charlee Godoy Other [employer] [facility] [employer] Other 07-23-2023 09:15-0500 Body mass index (BMI) [Ratio] 25.75 kg/m2 Charlee Godoy Other [employer] Other 07-23-2023 09:15-0500 Body temperature 97.7 [degF] Charlee Godoy Other [employer] Other 07-23-2023 09:15-0500 Body weight 79.11 kg Charlee Godoy Other [employer] Other 07-23-2023 09:15-0500 Diastolic blood pressure 86 mm[Hg] Charlee Godoy Other [employer] Other 07-23-2023 09:15-0500 Systolic blood pressure 124 mm[Hg] Charlee Godoy Other [employer] Other 05-15-2022 15:03-0400 Blood Pressure Location Bartolo TINAJERO [facility] [place] 05-15-2022 15:03-0400 Diastolic blood pressure 74 mm[Hg] Bartolo TINAJERO [facility] [place] 05-15-2022 15:03-0400 Heart rate 74 /min Bartolo TINAJERO [facility] [place] 05-15-2022 15:03-0400 Respiratory rate 16 /min Bartolo TINAJERO [facility] [place] 05-15-2022 15:03-0400 Systolic blood pressure 120 mm[Hg] Bartolo TINAJERO [facility] [place] Encounters Encounter Date Encounter Type Care Provider Facility Start: 12-08-2024 End: 12-08-2024 Bamboo flowsheet Frida Kala DO Work Phone: [facility] Start: 12-08-2024 End: 12-08-2024 Bamboo flowsheet Frida Kala DO Work Phone: [facility] Start: 12-08-2024 End: 12-08-2024 Patient encounter procedure Frida Kala DO Work Phone: [facility] Start: 12-08-2024 End: 12-08-2024 Periodic preventive med est patient 18-39 yrs Frida Kala DO Work Phone: [facility] Comment on above: Well woman exam with routine gynecological exam; Hormone imbalance; PCOS (polycystic ovarian syndrome); Irregular menstrual cycle Start: 11-28-2023 End: 11-28-2023 ambulatory ARI DELICIA Not Available Start: 11-28-2023 End: 11-28-2023 ambulatory ARI DELICIA Not Available Start: 11-23-2023 End: 11-23-2023 ambulatory [facility] Work Phone: Start: 11-23-2023 End: 11-23-2023 Patient encounter procedure [facility] Work Phone: Start: 07-23-2023 End: 07-23-2023 ambulatory Charlee Godoy Other [employer] Other Start: 07-23-2023 Office outpatient vi sit 15 minutes Charlee Godoy [facility] Start: 06-22-2022 End: 06-23-2022 ambulatory Bartolo TINAJERO Facility:[facility] Start: 06-22-2022 End: 06-22-2022 Patient encounter procedure Bartolo TINAJERO [facility] Start: 06-06-2022 End: 06-07-[address] BARTOLO TINAJERO Facility:[facility] Start: 05-15-2022 End: 05-16-2022 ambulatory Bartolo TINAJERO Facility: [facility] Start: 05-15-2022 End: 05-15-2022 Patient encounter procedure Bartolo TINAJERO [facility] Start: 04-27-2022 End: 04-28-2022 ambulatory CHARLEE GODOY PROVIDER Facility:[facility] Start: 04-10-2022 Gynecological examin ation normal Charlee Godoy Other [employer] Other Start: 04-10-2022 ambulatory CHARLEE GODOY PROVIDER Facility:[facility] Start: 02-20-2022 End: 02-21-2022 Evaluation and management of inpatient DR GAFFNEY LISTED REQUEST Facility:[facility] Start: 01-30-2022 End: 01-30-2022 [...] of Conception, Via Natural or Artificial Opening NONE LISTED REQUEST Start: 02-20-2022 Introduction of Othe r Hormone into Peripheral Vein, Percutaneous Approach NONE LISTED REQUEST Start: 02-20-2022 Repair Perineum Skin , External Approach NONE LISTED REQUEST screening Charlee butler Other screening Charlee butler Other Contraception care education Charlee Godoy Other End: 12-20-2021 Diabetes mellitus screening Charlee Godoy Other Excision of cyst Bartolo NIL L Comment on above: right groin Excision of lipoma of back Navarro mayorga NILL Extraction of wisdom tooth M tierra ELIZONDOL visit Charlee Godoy Other Plan of Treatment Date Care Activity Detail Author Start: 12-14-2025 End: 12-14-2025 Patient encounter procedure 12/14/2025 9:00 AM EDT Office Visit [facility] [address] [place] [address] Frida Armendariz DO [address] [place] [address] [facility] Start: 12-08-2024 End: 12-08-2025 DHEA DHEA Lab Routine PCOS (polycystic ovarian syndrome) Expected: 12/08/2024 (Approximate), Expires: 12/08/2025 [facility] Comment on above: Expected: 12/08/2024 (Approximate), Expires: 12/08/2025 Start: 12-08-2024 End: 12-08-2024 Patient encounter procedure 12/08/2024 11:30 AM EDT Office Visit [facility] [address] [place] [address] Frida Armendariz, [address] [place] [address] Arrived [facility] Comment on above: Arrived CBC W Auto Different ial panel - Blood CBC and differential Lab Routine PCOS (polycystic ovarian syndrome) Ordered: 12/08/2024 [facility] Comment on above: Ordered: 12/08/2024 Cytology Cervical or vaginal smear or scraping study Pap Smear Pathology and Cytology Routine Well woman exam with routine gynecological exam Ordered: 12/08/2024 [facility] Work Phone: Comment on above: Ordered: 12/08/2024 DHEA-sulfate DHEA-sulfate Lab Routine PCOS (polycystic ovarian syndrome) Ordered: 12/08/2024 [facility] Comment on above: Ordered: 12/08/2024 Estradiol Estradiol Lab Ro utine Hormone imbalance PCOS (polycystic ovarian syndrome) Ordered: 12/08/2024 [facility] Comment on above: Ordered: 12/08/2024 Follicle stimulating hormone Follicle stimulating hormone Lab Routine PCOS (polycystic ovarian syndrome) Ordered: 12/08/2024 [facility] Comment on above: Ordered: 12/08/2024 hCG, quantitative, hCG, quantitative, Lab Routine PCOS (polycystic ovarian syndrome) Ordered: 12/08/2024 [facility] Comment on above: Ordered: 12/08/2024 Hemoglobin A1c/Hemoglobin.total in Blood Hemoglobin A1c Lab Routine Hormone imbalance Ordered: 12/08/2024 [facility] Comment on above: Ordered: 12/08/2024 Human papilloma viru s DNA [Presence] in Unspecified specimen by Probe with amplification HPV DNA probe, amplified Microbiology Routine Well woman exam with routine gynecological exam Ordered: 12/08/2024 [facility] Comment on above: Ordered: 12/08/2024 Luteinizing hormone Luteinizing hormone Lab Routine PCOS (polycystic ovarian syndrome) Ordered: 12/08/2024 [facility] Comment on above: Ordered: 12/08/2024 Progesterone Progesterone Lab Routine Hormone imbalance PCOS (polycystic ovarian syndrome) Ordered: 12/08/2024 [facility] Comment on above: Ordered: 12/08/2024 Thyrotropin [Units/volume] in Serum or Plasma TSH Lab Routine PCOS (polycystic ovarian syndrome) Ordered: 12/08/2024 [facility] Comment on above: Ordered: 12/08/2024 Thyroxine (T4) free [Mass/volume] in Serum or Plasma T4, free Lab Routine PCOS (polycystic ovarian syndrome) Ordered: 12/08/2024 [facility] Comment on above: Ordered: 12/08/2024 Payers Date Payer Category Payer Managed Care O (unspecified) [employer] [facility] Address: [facility] [address] [place] [address] [id number] 1991 Unknown [id number] 2.16.840.1.396783.3.579. 2.593 1991 Unknown [id number] 2.16.840.1.959019.3.579. 2.593 1991 Unknown [id number] 2.16.840.1.982416.3.579. 2.593 1991 Unknown [id number] 2.16.840.1.988965.3.579. 2.593 1991 Unknown [id number] 2.16.840.1.102658.3.579. 2.593 1991 Unknown [id number] 2.16.840.1.665129.3.579. 2.593 1991 Unknown [id number] 2.16.840.1.536146.3.579. 2.593 1991 Unknown [id number] 2.16.840.1.718439.3.579. 2.593 1991 Unknown [id number] 2.16.840.1.447605.3.579. 2.593 1991 Unknown [id number] 2.16.840.1.291247.3.579. 2.593 1991 Unknown [id number] 2.16.840.1.624758.3.579. 2.727 1991 Unknown [id number] 2.16.840.1.809431.3.579. 2.727 1991 Unknown [id number] 2.16.840.1.525033.3.579. 2.727 1991 Unknown [id number] 2.16.840.1.443498.3.579. 2.727 1991 Unknown [id number] 2.16.840.1.376693.3.579. 2.727 1991 Unknown [id number] 2.16.840.1.508992.3.579. 2.1259 1959 Private Health Insurance [id number] Private Health Insurance [id number] Unknown MMO [id number] HCAP/HFA/FAP Active [id number] Social History Date Type Detail Facility Start: 04-27-2022 End: 11-23-2023 Tobacco smoking status Never smoked tobacco (finding) [facility] Tobacco smoking status Never [facility] Sex Assigned At Female [facility] Start: 1990 Sex Assigned At Female F [facility] Tobacco smoking status IAIS Tobacco smoking consumption unknown [facility] Start: 1990 Sex assigned at Not on file [facility] Functional Status Date Assessment Result Facility 05-15-2022 Functional Status N/A [facility] Clinical Notes 04-27-2022 to 12-08-2024 Gabrielle RuizJENNIFER - 12/08/2024 11:30 AM EDT Note Date & Type Note Facility 12-08-2024 History of Presen t illness Narrative Reason for Appointment: Patient ID: Tammie Mares is a 34 y.o. female who presents for Gynecologic Exam Patient presents today for Annual Exam. MEDICATIONS Current Outpatient Medications Medication Instructions Sprintec 28 0.25-35 MG-MCG tablet 1 tablet, Oral, Daily, Take 1 tablet by mouth daily ALLERGIES No Known Allergies PROBLEMS Active Ambulatory Problems Diagnosis Date Noted No Active Ambulatory Problems Resolved Ambulatory Problems Diagnosis Date Noted No Resolved Ambulatory Problems No Additional Past Medical History HISTORY PAST MEDICAL HISTORY SOCIAL HISTORY No past medical history on file. Social History Tobacco Use Smoking status: Not on file Smokeless tobacco: Not on file Substance Use Topics Alcohol use: Not on file Drug use: Not on file FAMILY HISTORY No family history on file. SURGICAL HISTORY History reviewed. No pertinent surgical history. REVIEW OF SYSTEMS Review of Systems: Review of Systems Constitutional: Negative. HENT: Negative. Eyes: Negative. Respiratory: Negative. Cardiovascular: Negative. Gastrointestinal: Negative. Genitourinary: Negative. Musculoskeletal: Negative. Skin: Negative. Neurological: Negative. All other systems reviewed and are negative. Hematological: Negative. Endocrine: Negative. Allergic/Immunologic: Negative. OBJECTIVE Objective: Physical Exam Constitutional: Appearance: Normal appearance. She is well-developed. Genitourinary: Vulva normal. Breasts: Breasts are soft. Right: Normal. Left: Normal. Cardiovascular: Rate and Rhythm: Normal rate and regular rhythm. Pulmonary: Effort: Pulmonary effort is normal. Breath sounds: Normal breath sounds. Abdominal: General: Bowel sounds are normal. There is no distension. Palpations: Abdomen is soft. Tenderness: There is no abdominal tenderness. There is no guarding or rebound. Musculoskeletal: General: No swelling. Normal range of motion. Right lower leg: No edema. Left lower leg: No edema. Neurological: Mental Status: She is alert and oriented to person, place, and time. Skin: General: Skin is warm and dry. Psychiatric: Mood and Affect: Mood normal. Behavior: Behavior normal. Vitals and nursing note reviewed. Exam conducted with a service promoter salesperson present. Vitals: There is no height or weight on file to calculate BMI. BP: No LMP recorded. ASSESSMENT & PLAN ICD-10-CM 1. Well woman exam with routine gynecological exam Z01.419 Pap Smear HPV DNA probe, amplified 2. Hormone imbalance E34.9 Annual Exam: Patient presents today for an annual exam. Patient states she is doing well and has complaints of long periods on control- pt stopped control and now feels a roller-coaster emotionally, and more hormonal. Discussed Effexor or celexa, or changing control. Pt given labs to have obtained Pap was obtained without difficulty. Rx for Slynd faxed to pharmacy. Orders Placed This Encounter Procedures HPV DNA probe, amplified Follow Up: Patient is to return in one year for annual unless needed otherwise. Documented by Gabrielle Ruiz LPN on behalf of: Frida Armendariz DO documented in this encounter [facility] 07-23-2023 Evaluation note Encounter Date Diagnosis Assessment Notes Jul, Bronchitis (ICD-10 - J40) stop augmentin switch to zpack tessalon made her cough worse continue OTC meds. rest and fluids as able. Enverv Other 11-16-2022 NoteOPERATIVE NOTE OPERATION DATE: 06/06/2022 PREOPERATIVE DIAGNOSIS: Enlarging [...] home in good condition. CC: [facility] [id number] NoteChief Complaint consultation for left axillary cyst HPI [...] swallowing difficulties, no hearing loss, no ear infection(s),no nose bleeds. Cardiovascular: normal blood pressure, no [...] day(s), # 15 cap(s), Refills(s) 0, Pharmacy: [facility]/pharmacy #[id number], 175, cm, 05/15/22 15:04:00 EDT, [...] Use:., 04/27/2022 Family History [facility] history is [facility]Our [facility] AndersonComment on above:Result Comment: Electronically Signed By: GEETHA SIEGEL, Bartolo Cash\Date and Time Signed: 05/15/22 17:04 [id number] NoteChief Complaint consultation for lipoma HPI Staff 30 [...] swallowing difficulties, no hearing loss, no ear infection(s),no nose bleeds. Cardiovascular: normal blood pressure, no [...] plan excisional biopsy under local anesthesia at [facility], informed consent obtained. Follow-up No qualifying [...] Use:., 04/27/2022 Family History Family history is negativeOur [facility] Of Mer[facility] Hospital - AndersonComment on above:Result Comment: Electronically Signed By: GEETHA SIEGEL, Bartolo Cash\Date and Time Signed: 04/27/22 14:31 EDTEvaluation + Plan note No data available for this section General Surgery [place] Evaluation noteNo assessment information available [facility] Work Phone: Evaluation note* Diagnosis Well woman exam with routine gynecological exam Routine gynecological examination Hormone imbalance PCOS (polycystic ovarian syndrome) Polycystic ovaries Irregular menstrual cycle [facility] N[facility] - Reported* Type Description Date Medical History Problem Title : comp liance [...] : Active,, Medical History Problem Title : Problems Reconci led, Problem Status : Active,, Medical History Problem [...] R groin 2016, Problem Status : Inactive, Enverv Other Hospital Discharge instructions No data available for this section General Surgery [place] Progress note No data available for this section General Surgery [facility] Summary Purpose Family History No Family History [...] section and content) DATE CREATED AUTHOR 06/14/2022 [facility] [place] [facility] DATE CREATED AUTHOR AUTHOR'S ORGANIZ ATION [facility] DATE CREATED AUTHOR AUTHOR'S ORGANIZ ATION 11/30/2023 [facility] EPIC DATE CREATED AUTHOR AUTHOR'S ORGANIZ ATION 05/09/2024 [facility] EPIC REASON FOR VISIT (unrecogniz ed section and content) Reason Comments Gynecologic Exam Goals (unrecognized section and content) Goals may [...] BE BASED ON THE PRIMARY CLINICAL RECORDS. [facility]. provides no warranty or guarantee of the accuracy or completeness of information in this document.
[2024-12-09 13:43] LABS: Basophils Absolute Auto 0.1 10^3/uL (0.0-0.1); Basophils Percent Auto 0.9 % (0.2-2.0); Eosinophils Absolute Auto 0.2 10^3/uL (0.0-0.7); Eosinophils Percent Auto 2.8 % (0.9-7.0); Hematocrit 40.7 % (36.0-48.0); Hemoglobin 13.9 g/dL (12.0-16.0); Immature Granulocytes Abs Auto 0.02 10^3/uL (0.00-0.03); Immature Granulocytes Pct Auto 0.2 % (0.0-0.5); Lymphocytes Absolute Auto 2.6 10^3/uL (1.2-3.8); Lymphocytes Percent Auto 31.8 % (20.5-60.0); Mean Corpuscular HGB Conc 34.2 g/dL (29.9-35.2); Mean Corpuscular Hemoglobin 31.4 pg (26.7-34.0); Mean Corpuscular Volume 92.1 fL (81.0-99.0); Mean Platelet Volume 12.1 fL (9.5-13.5); Monocytes Absolute Auto 0.5 10^3/uL (0.3-0.8); Monocytes Percent Auto 5.7 % (1.7-12.0); Neutrophils Absolute Auto 4.8 10^3/uL (1.4-6.5); Neutrophils Percent Auto 58.6 % (43.0-75.0); Platelet Count 279 10^3/uL (150-450); Red Blood Count 4.42 10^6/uL (4.20-5.40); Red Cell Distribution Width 12.2 % (11.0-15.0); White Blood Count 8.2 10^3/uL (4.0-11.0)
[2024-12-09 13:59] LABS: Estimated Average Glucose 111 mg/dL; Glycohemoglobin A1C 5.5 % (4.5-6.2)
[2024-12-09 14:09] LABS: HCG Quantitative <1 mIU/mL
[2024-12-09 14:35] LABS: Free T4 0.92 ng/dL (0.76-1.46)
[2024-12-10 04:07] LABS: Estradiol 33.1 pg/mL (.); FSH 1.5 mIU/mL (.); Luteinizing Hormone(LH) 1.1 mIU/mL (.); Progesterone 1.6 ng/mL (.)
== END 2024-12-09 13:12 | disposition home or self-care (01) ==
LOC: LAB 13:11
PROVIDERS: PCP Family Medicine; Visit Provider Obstetrics & Gynecology
DX: E28.2 Polycystic ovarian syndrome (principal); E34.9 Endocrine disorder, unspecified
CPT/HCPCS: 36415; 82626; 82627; 82670; 83001; 83002; 83036; 84144; 84439; 84443; 84702; 85025

== ENCOUNTER 2025-06-03 09:49 | Emergency (ER) | payer OTHER, SELFPAY ==
[2025-06-03 09:56] VITALS: BP 113/64; PULSE 96; TEMP 35.5; O2SAT 99; BMI 23.7
--- NOTE | 2025-06-03 10:07 | ED_ITS ---
HPI HPI - General Adult General Chief complaint: Nausea/Vomiting/Diarrhea Stated complaint: FEVER VOMITING DEHYDRATION Time Seen by Provider: 06/03/25 10:04 Source: patient Mode of arrival: Wheelchair History of Present Illness HPI narrative: 34-year-old female presenting to the ER with a 2 to 3-day history of nausea vomiting as well as dizziness, patient had also some low-grade fever over the last few days, she works in healthcare . No diarrhea, there is generalized body ache Describing dizziness is mostly the room spinning sensation Related Data Previous Rx's ?Medication ?Instructions ?Recorded meclizine 25 mg tablet 25 mg PO TID PRN motion sick ness 06/03/25 #20 tabs ondansetron 4 mg disintegrating 4 mg PO Q8H PRN nausea and 06/03/25 tablet vomiting 48 hours #10 tabs Allergies Allergy/AdvReac Type Severity Reaction Status Date / Time No Known Drug Allergies Allergy Verified 06/03/25 09:56 Review of Systems ROS Status of ROS 10 or more systems reviewed and unremark able except as noted in history and below PFSH PFSH Social History Little interest or pleasure in doing things: not at all Feeling down, depressed, or hopeless: not at all Exam Narrative Exam Narrative: Nurses notes and vital signs reviewed and patient is not hypoxic. General: Well-appearing and in no apparent distress. Skin: Warm, dry, no pallor noted. No rash. Head: Normocephalic, atraumatic. Neck: Supple, non-tender. Eye: Pupils are equal, round and EOMI. No scleral icterus. Ears, Nose, Mouth, and Throat: TM are clear, no nasal mucosal hypertrophy. Dry mucous membranes, no posterior oropharynx erythema, uvula is mid-line Cardiovascular: Regular Rate and Rhythm without murmur, gallop or rub. Respiratory: No accessory muscle use or respiratory distress. Lungs are clear to auscultation, no wheezing, rales or rhonchi Chest Wall: no tenderness Back: No midline thoracic or lumbar vertebral tenderness. No CVA tenderness Musculoskeletal: normal ROM, no calf or popliteal tenderness, no lower extremity edema/swelling GI: Abdomen is soft, non-distended. Normal bowel sounds. No masses appreciated. No tenderness to palpation. No rebound, guarding, or rigidity noted. Neurological: A&O x4. No cranial nerve dysfunction observed. No truncal ataxia. Moves all extremities. Sensation intact. Psychiatric: Cooperative and interactive. Normal mood and affect. Constitutional Vital Signs, click to edit/add: Last Vital Signs Temp 97.4 F L 06/03/25 11:22 Pulse 96 H 06/03/25 09:56 Resp 20 06/03/25 09:56 BP 113/64 06/03/25 09:56 Pulse Ox 99 06/03/25 09:56 O2 Del Method Room Air 06/03/25 09:56 Course Vital Signs Vital signs: Vital Signs Temperature 96 F L 06/03/25 09:56 Pulse Rate 96 H 06/03/25 09:56 Respiratory Rate 20 06/03/25 09:56 Blood Pressure 113/64 06/03/25 09:56 Pulse Oximetry 99 06/03/25 09:56 Oxygen Delivery Method Room Air 06/03/25 09:56 Temperature 97.4 F L 06/03/25 11:22 Pulse Rate 96 H 06/03/25 09:56 Respiratory Rate 20 06/03/25 09:56 Blood Pressure 113/64 06/03/25 09:56 Pulse Oximetry 99 06/03/25 09:56 Oxygen Delivery Method Room Air 06/03/25 09:56 Medical Decision Making MDM Narrative Medical decision making narrative: Upon arrival the patient was started on IV fluids as well as Zofran The patient CBC is just above 11 and the chemistry showing some hypokalemia with some metabolic acidosis mostly secondary to severe dehydration and the patient had p.o. potassium 50 mEQ in the ER Patient provided with 2 L of fluid after which she was able to give us urine sample that showed some ketones in it and she was provided with another 500 cc of normal saline after that The patient was feeling much better after initial treatment with hydration and she also had the Get maneuver to resolve vertigo after which she was feeling better Patient treated with meclizine as well as Toradol and Zofran in the ER She was feeling much better discharged home with hydration at the plan as well as Zofran and meclizine Patient also had a COVID and flu test that were both negative Patient was able to tolerate p.o. well in the ER The patient to follow-up with the primary care within 2 to 3 days and to come back to the ER in case of any worsening of the current symptoms or any new symptoms or concerns Lab Data Labs: Lab Results 06/03/25 06/03/25 06/03/25 Range/Units 10:10 10:30 12:35 WBC 11.8 H (4.0-11.0) 10^3/uL RBC 4.49 (4.20-5.40) 10^6/uL Hgb 14.0 (12.0-16.0) g/dL Hct 40.0 (36.0-48.0) % MCV 89.1 (81.0-99.0) fL MCH 31.2 (26.7-34.0) pg MCHC 35.0 (29.9-35.2) g/dL RDW 11.7 (11.0-15.0) % Plt Count 436 (150-450) 10^3/uL MPV 11.2 (9.5-13.5) fL Neut % (Auto) 53.1 (43.0-75.0) % Lymph % (Auto) 40.7 (20.5-60.0) % [place] % (Auto) 4.0 (1.7-12.0) % Eos % (Auto) 0.9 (0.9-7.0) % Baso % (Auto) 0.7 (0.2-2.0) % Neut # (Auto) 6.3 (1.4-6.5) 10^3/uL Lymph # (Auto) 4.8 H (1.2-3.8) 10^3/uL Yolo # (Auto) 0.5 (0.3-0.8) 10^3/uL Eos # (Auto) 0.1 (0.0-0.7) 10^3/uL Baso # (Auto) 0.1 (0.0-0.1) 10^3/uL Abs Immat Gran (auto) 0.07 H (0.00-0.03) 10^3/uL Imm/Tot Granulo (auto) 0.6 H (0.0-0.5) % Sodium 136 (136-145) mmol/L Potassium 3.0 L (3.5-5.1) mmol/L Chloride 101 (98-107) mmol/L Carbon Dioxide 20.7 L (21.0-32.0) mmol/L Anion Gap 17.3 BUN 9.0 (7.0-18.0) mg/dL Creatinine 0.85 (0.55-1.02) mg/dL Est GFR ( Amer) >60 (>=60 mL/min/1.73m^2) Est GFR (Non-Af Amer) >60 (>=60 mL/min/1.73m^2) BUN/Creatinine Ratio 10.6 Glucose 164 H (74-106) mg/dL Calcium 9.0 (8.5-10.1) mg/dL Total Bilirubin 1.1 H (0.2-1.0) mg/dL AST 13 L (15-37) U/L ALT 27 (14-59) U/L Alkaline Phosphatase 49 (46-116) U/L Total Protein 7.3 (6.4-8.2) g/dL Albumin 4.0 (3.4-5.0) g/dL Globulin 3.3 g/dL Albumin/Globulin Ratio 1.2 Serum HCG, Qual Negative (NEGATIVE) Urine Color Lt. yellow (YELLOW) Urine Clarity Clear (CLEAR) Urine pH 7.0 (5.0-9.0) Ur Specific Sterrett <=1.005 A (1.005-1.025) Urine Protein Negative (NEG/TRACE) mg/dL Urine Glucose (UA) Negative (NEGATIVE) mg/dL Urine Ketones 15 A (NEGATIVE) mg/dL Urine Occult Blood Negative (NEGATIVE) Urine Nitrite Negative (NEGATIVE) Urine Bilirubin Negative (NEGATIVE) Urine Urobilinogen 0.2 (0.2-1.0) EU/dL Ur Leukocyte Esterase Negative (NEGATIVE) Influenza Type A Ag Negative Influenza Type B Ag Negative SARS-CoV-2 Ag (CV2AG) Negative (NEGATIVE) Discharge Plan Discharge Chief Complaint: Nausea/Vomiting/Diarrhea Clinical Impression: Acute viral syndrome, Benign paroxysmal positional vertigo, Hypokalemia Patient Disposition: Home, Self-Care Time of Disposition Decision: 13:54 Condition: Good Prescriptions / Home Meds: New meclizine 25 mg tablet 25 mg PO TID PRN (Reason: motion sickness) Qty: 20 0RF ondansetron 4 mg tablet,disintegrating 4 mg PO Q8H PRN (Reason: nausea and vomiting) 2 Days Qty: 10 0RF Print Language: Citizen Of [place] Instructions: Benign Paroxysmal Positional Vertigo (DC), Viral Syndrome (ED) Referrals: Charlee Alonso MD [Primary Care Provider, [facility]] - 1 week Discharge Date/Time: 06/03/25 14:21
[2025-06-03] MEDS: KETOROLAC TROMETHAMINE 30 MG/ML VIAL 15 MG IVP (10:17)
[2025-06-03] MEDS: 0.9 % SODIUM CHLORIDE 1,000 ML 1000 ML IV ×2 (10:17→11:27)
[2025-06-03 10:24] LABS: Hematocrit 40.0 % (36.0-48.0); Hemoglobin 14.0 g/dL (12.0-16.0); Immature Granulocytes Abs Auto 0.07 10^3/uL (0.00-0.03); Immature Granulocytes Pct Auto 0.6 % (0.0-0.5); Lymphocytes Absolute Auto 4.8 10^3/uL (1.2-3.8); Mean Corpuscular HGB Conc 35.0 g/dL (29.9-35.2); Mean Corpuscular Hemoglobin 31.2 pg (26.7-34.0); Mean Corpuscular Volume 89.1 fL (81.0-99.0); Platelet Count 436 10^3/uL (150-450); Red Blood Count 4.49 10^6/uL (4.20-5.40); White Blood Count 11.8 10^3/uL (4.0-11.0)
[2025-06-03 10:35] LABS: Alanine Aminotransferase 27 U/L (14-59); Albumin Globulin Ratio 1.2; Albumin Level 4.0 g/dL (3.4-5.0); Alkaline Phosphatase 49 U/L (46-116); Anion Gap 17.3; Aspartate Amino Transferase 13 U/L (15-37); Blood Urea Nitrogen 9.0 mg/dL (7.0-18.0); Calcium 9.0 mg/dL (8.5-10.1); Carbon Dioxide 20.7 mmol/L (21.0-32.0); Chloride 101 mmol/L (98-107); Estimated GFR (African America >60 (>=60 mL/min/1.73m^2); Estimated GFR (Non-African Ame >60 (>=60 mL/min/1.73m^2); Globulin 3.3 g/dL; Glucose 164 mg/dL (74-106); Potassium 3.0 mmol/L (3.5-5.1); Sodium 136 mmol/L (136-145); Total Protein 7.3 g/dL (6.4-8.2)
[2025-06-03 10:51] LABS: SARS-CoV-2 Ag NEGATIVE (NEGATIVE)
--- OUTSIDE RECORDS SUMMARY | 2025-06-03 10:57 | XMS_ITS | Clinical Summary ---
Author Organization [facility] Address [address] [place] [address] Care Team Providers Care Pharmacist Technician Name Role Phone Unavailable Primary Care Provider Unavailabl e Allergies No known active allergies Medications MedicationSigDispense QuantityRefillsLast FilledStart DateEnd DateStatus Drospirenone (Slynd) 4 MG tablet Indications:Hormone imbalance,Irregular menstrual cycleTake 4 mg by mouth Daily 28 tablet 5Active Social History Tobacco UseTypesPacks/DayYears UsedDateSmoking Tobacco: Never Assessed CommentsNoSex and Gender InformationValueDate RecordedSex Assigned at BirthNot on fileLegal RbuEpdoau11/15/2023 6:36 PM EDTGender IdentityNot on fileSexual OrientationNot on file Last Filed Vital Signs Vital SignReadingTime TakenCommentsBlood [id number] 4:00 PM EDT Pulse--Temperature--Respiratory Rate--Oxygen Saturation--Inhaled Oxygen Concentration--Mbsiql00.8 kg (176 lb)12/08/2024 11:50 AM EDTHeight--Body Mass Index-- Plan of Treatment DateTypeDepartmentCare Team (Latest Contact Info)Tvyqkskboqc40/26/2026 9:00 AM EDTOffice Visit [facility] [address] [place] [place] [id number] Israel Armendariz DO [address] [place], [place] [id number] Insurance * Guarantor: Aleida Mares TypeRelation to PatientDate of BirthPhone Billing AddressPersonal/[id number] [address] [phone] [facility] Address: [facility] [id number] [place] [phone] * Guarantor: Aleida Mares TypeRelation to PatientDate of BirthPhone Billing AddressPersonal/[id number] [address] [phone]
[2025-06-03 11:22] VITALS: TEMP 36.3
[2025-06-03 12:50] LABS: Glucose Urine UA NEGATIVE (NEGATIVE)
[2025-06-03] MEDS: MECLIZINE HCL 12.5 MG TABLET 25 MG PO (13:30)
[2025-06-03] MEDS: 0.9 % SODIUM CHLORIDE 1,000 ML 500 ML IV (13:30)
[2025-06-03] MEDS: POTASSIUM BICARBONATE/CIT 25 MEQ TABLET EFF 50 MEQ PO (13:52)
== END 2025-06-03 14:21 | disposition home or self-care (01) ==
PROVIDERS: Emergency Provider Emergency Medicine; PCP Family Medicine
DX: B34.9 Viral infection, unspecified (principal); H81.10 Benign paroxysmal vertigo, unspecified ear; E87.6 Hypokalemia
CPT/HCPCS: 36415; 80053; 81003; 84703; 85025; 87804; 87811; 96361; 96374; 96375; 99284; J1885; J2405